=== PATIENT | female | born 1945 | race American Indian/Alaskan Native ===

== ENCOUNTER 2022-05-28 19:37 | Inpatient (IN) | payer MEDICARE ==
[2022-05-28] MEDS ORDERED: SODIUM CHLORIDE 0.9% 1000 ML 1,000 ML IV ONE ×2 (21:02→21:10)
[2022-05-28] MEDS ORDERED: INSULIN REGULAR, HUMAN 100 UNITS/1 ML IV ONE (21:08)
--- NOTE | 2022-05-28 21:15 | XRay Report ---
CHEST 1 VIEW 05/28/2022 9:00 PM INDICATION / CLINICAL INFORMATION: altered mental status. COMPARISON: 07/16/2010 FINDINGS: SUPPORT DEVICES: None. HEART / MEDIASTINUM: No significant abnormality. LUNGS / PLEURA: There is elevation of the right hemidiaphragm which is occurred since 2009. No pneumo thorax. No focal infiltrate is seen. ADDITIONAL FINDINGS: No significant additional findings. IMPRESSION: 1. There is elevation of the right hemidiaphragm which is a new finding since 2009. No focal infiltra te is seen. No pneumothorax is seen. Signer Name: Michael Carney MD Signed: 05/28/2022 9:11 PM Workstation Name: [id number]
--- NOTE | 2022-05-28 21:18 | Emergency Department Report ---
HPI - General Chief Complaint: Altered Mental Status PUI?: No Time Seen by Provider: 05/28/22 20:46 - HPI HPI: 76-year-old morbidly obese female with diabetes, unknown remainder past medical history, brought in by EMS for hypoglycemia. EMS not readily available to present HPI to this patient. Per charge nurse Francheska, EMS states that the patient's brother telephoned EMS because the patient had been weak, and not taking her insulin for the past 2 days. Patient was found to be incontinent of urine and covered in multiple urine soaked towels upon their arrival. Patient states "I just do not feel well." She denies any chest pain shortness of breath difficulty breathing or palpitations. No abdominal pain. No headache or head injury or loss of consciousness. Pain 0 out of 10. ED Past Medical Hx - Past Medical History Previous Medical History?: Yes Hx Hypertension: Yes Hx Diabetes: Yes Additional medical history: Obesity - Surgical History Past Surgical History?: No - Family History Family history: no significant - Social History Smoking Status: Never Smoker Substance Use Type: None ED Review of Systems ROS: Stated complaint: ELEVATED BLOOD GLUCOSE Other details as noted in HPI Comment: All other systems reviewed and negative Constitutional: malaise, weakness Eyes: denies: eye pain, eye discharge, vision change ENT: denies: ear pain, throat pain, dental pain, hearing loss, epistaxis Respiratory: no symptoms reported. denies: cough Physical Exam - Physical Exam Vital Signs: Vital Signs 05/28/22 19:38 Temperature 98.8 F Pulse Rate 96 H Respiratory 18 Rate Blood Pressure 157/81 O2 Sat by Pulse 97 Oximetry General: Gen: Morbidly obese female, ill-appearing, disheveled, strong odor of foul- smelling urine covering the patient and emanating from her examination room, no drooling no stridor no respiratory distress HEENT: Normocephalic atraumatic pupils equally round and reactive to light extraocular muscles intact sclera anicteric, patient's oropharynx is dry, Neck: Full range of motion, no midline spinal tenderness palpation, no JVD, no carotid bruits, no nuchal rigidity CVS: S1-S2 regular rate and rhythm with no gallops rubs or murmurs, chest wall nontender Pulmonary: Clear to auscultation bilaterally, no wheezes rales or rhonchi Abdomen: Soft nondistended nontender no guarding or rebound tenderness, no palpable deformities or step-offs, normal active bowel sounds, no hepatosplenomegaly, no pulsatile masses : Patient has stage I sacral decubitus with diffuse and macerated skin covering her buttocks, no visible erythema or open wounds to her vulva or perineum Extremities: No cyanosis no clubbing no edema, intact distal peripheral pulses, Integumentary: Skin dry no petechia no purpura no abscess no lacerations no evidence of trauma no evidence of infection Neuro: Patient is awake alert and oriented to person place time situation, mentating well,, weak, spontaneously moving arms and legs, Psych: Calm cooperative, mood affect normal ED Course Vital Signs 05/28/22 19:38 Temperature 98.8 F Pulse Rate 96 H Respiratory 18 Rate Blood Pressure 157/81 O2 Sat by Pulse 97 Oximetry - Reevaluation(s) Reevaluation #1: 05/28/22 23:23 pt is comfortable and well appearing Multiple calls made by this provider, from 10:13pm-11:23pm, to the pt's residential facility, [facility]. No one answered and despite pressing multiple buttons given options via the voice answering service, no one answered the phone at any of the individual extensions. ED Medical Decision Making - Lab Data Result diagrams: 05/28/22 21:51 05/28/22 21:51 - EKG Data EKG shows normal: sinus rhythm Rate: normal - EKG Data When compared to previous EKG there are: no significant change, previous EKG unavailable Interpretation: no acute changes - Radiology Data Radiology results: report reviewed - Medical Decision Making 76-year-old morbidly obese female with multiple medical comorbidities brought in by EMS for urinary incontinence and weakness. Vital signs stable. Patient is ill-appearing and dehydrated on physical examination. See electronic health record for documented findings. Serum labs reviewed. Patient has evidence of elevated anion gap metabolic acidosis with an anion gap of 19. This is likely due to diabetic ketoacidosis. She was given insulin and normal saline. Urinalysis positive for UTI. Patient ordered for Rocephin for broad-spectrum antibiotics and treatment of her urinary tract infection.. During her emergency because department course the patient was noted by staff members to have active live bedbugs. Decontamination to be performed by her emergency department nurse. Case reviewed with admitting hospitalist, Dr. Connor. Patient's care has been transferred to him for further management via the hospitalist service. Critical Care Time: No Critical care attestation.: If time is entered above; I have spent that time in minutes in the direct care of this critically ill patient, excluding procedure time. ED Disposition Clinical Impression: UTI (urinary tract infection), Altered mental status, DKA (diabetic ketoacidosis) Disposition: 09 ADMITTED INPATIENT Is pt being admited?: Yes Does the pt Need Aspirin: No Condition: Stable Instructions: Diabetic Ketoacidosis (ED)
[2022-05-28 21:42] LABS: Bilirubin,Urine NEG (Negative); Blood,Urine NEG (Negative); Color,Urine Yellow (Yellow); Protein,Urine <15 mg/dL mg/dL (Negative); Urobilinogen,Urine < 2.0 mg/dL (<2.0)
[2022-05-28 21:53] LABS: Mucus,Urine FEW /HPF
[2022-05-28 22:04] LABS: Basophils % (Auto) 0.2 % (0.0-1.8); Eosinophils % (Auto) 0.5 % (0.0-4.3); Hematocrit 46.2 % (30.3-42.9); Lymphocytes # (Auto) 1.4 K/mm3 (1.2-5.4); Lymphocytes % (Auto) 16.7 % (13.4-35.0); Mean Corpuscular HGB Conc 32 % (30-34); Mean Corpuscular Volume 100 fl (79-97); Monocytes # (Auto) 0.7 K/mm3 (0.0-0.8); Monocytes % (Auto) 7.7 % (0.0-7.3); Platelet Count 316 K/mm3 (140-440); Red Blood Count 4.61 M/mm3 (3.65-5.03); Red Cell Distribution Width 14.1 % (13.2-15.2)
[2022-05-28] MEDS ORDERED: cefTRIAXone/NS 1 GM/50 ML 1 GM/50 ML BAG IV ONE (22:10)
[2022-05-28 22:19] LABS: Albumin 3.7 g/dL (3.9-5); Calcium 10.4 mg/dL (8.4-10.2)
[2022-05-28] MEDS ORDERED: CEFEPIME/NS 1 GM/100 ML 1 GM/100 ML BAG IV ONE (23:24)
--- NOTE | 2022-05-28 23:53 | Cat Scan Report ---
CT HEAD WITHOUT CONTRAST INDICATION / CLINICAL INFORMATION: altered mental status. TECHNIQUE: CT head was performed without administration of intravenous contrast. All CT scans at this location are performed using CT dose reduction for ALARA by means of automated exposure control. COMPARISON: None available. FINDINGS: CEREBRAL HEMISPHERES: Generalized atrophy and bilateral regions of periventricular white matter hypoa ttenuation compatible with microvascular ischemia are demonstrated. No midline shift. Basal cisterns patent. Bilateral basal ganglia calcification. HEMORRHAGE: None. CEREBELLUM / BRAINSTEM: No significant abnormality. ORBITS: No significant abnormality. SOFT TISSUES: No significant abnormality. SKULL: No significant abnormality. PARANASAL SINUSES / MASTOID AIR CELLS: Normal as visualized. ADDITIONAL FINDINGS: None. IMPRESSION: 1. No acute intracranial abnormality. Signer Name: Eze Muñoz II, MD Signed: 05/28/2022 11:48 PM Workstation Name: [id number]
[2022-05-29] MEDS ORDERED: ALBUTEROL 2.5 MG/3 ML NEBU IH PRN (00:34)
[2022-05-29] MEDS ORDERED: ONDANSETRON 4 MG/2 ML INJ IV PRN (00:34)
[2022-05-29] MEDS ORDERED: ACETAMINOPHEN 325 MG TAB PO PRN (00:34)
[2022-05-29] MEDS ORDERED: DEXTROSE 50% IN WATER (25GM) 50 ML SYRINGE IV PRN (00:34)
--- NOTE | 2022-05-29 00:44 | History and Physical Report ---
History of Present Illness Date of examination: 05/29/22 Date of admission: 05/29/22 Chief complaint: Altered mental status Hyperglycemia History of present illness: 76-year-old morbidly obese female with diabetes and hypertension was brought to the emergency room because of hyperglycemia and altered mental status. Per charge nurse Francheska, EMS states that the patient's brother telephoned EMS because the patient had been weak, and not taking her insulin for the past 2 days. Patient was found to be incontinent of urine and covered in multiple urine soaked towels upon their arrival. Patient states "I just do not feel well." She denies any chest pain shortness of breath difficulty breathing or palpitations. No abdominal pain. No headache or head injury or loss of consciousness. Pain 0 out of 10. In the emergency room patient is found to have blood glucose of 425, bicarb of 26 and anion gap 19 subsequent blood glucose after 6 units of insulin is 279. Initial CT scan of the head shows no acute intracranial abnormality. Chest x- ray shows no focal infiltrate is seen. Patient also found to have a UTI . During her emergency because department course the patient was noted by staff members to have active live bedbugs. Decontamination to be performed by her emergency department nurse. Past History Past Medical History: diabetes, hypertension, other (Obesity) Past Surgical History: No surgical history Social history: no significant social history Family history: diabetes Medications and Allergies Allergies Allergy/AdvReac Type Severity Reaction Status Date / Time Unable to Assess Allergy Unverified 05/28/22 20:42 Active Meds: Active Medications Acetaminophen (Acetaminophen 325 Mg Tab) 650 mg PO Q4H PRN PRN Reason: Pain MILD(1-3)/Fever >100.5/DUARTE Albuterol (Albuterol 2.5 Mg/3 Ml Nebu) 2.5 mg IH Q3HRT PRN PRN Reason: Shortness Of Breath Albuterol/Ipratropium (Ipratropium/Albuterol Sulfate 3 Ml Ampul.Neb) 1 ampul IH Q6HRT MEHUL Dextrose (Dextrose 50% In Water (25gm) 50 Ml Syringe) 50 ml IV Q30MIN PRN; Protocol PRN Reason: Hypoglycemia Famotidine (Famotidine 20 Mg/2 Ml Inj) 20 mg IV BID MEHUL Heparin Sodium (Porcine) (Heparin 5,000 Unit/1 Ml Vial) 5,000 unit SUB-Q Q12HR MEHUL Sodium Chloride (Nacl 0.45% 1000 Ml) 1,000 mls @ 125 mls/hr IV DIRECT MEHUL Ceftriaxone Sodium (Rocephin/Ns 2 Gm/100 Ml) 2 gm in 100 mls @ 200 mls/hr IV Q24H MEHUL; Protocol Insulin Glargine (Insulin Glargine 100 Units/Ml) 10 units SUB-Q BID MEHUL Insulin Human Lispro (Insulin Lispro 100 Unit/Ml) 0 unit SUB-Q Q4H MEHUL; Protocol Morphine Sulfate (Morphine 2 Mg/1 Ml Inj) 2 mg IV Q4H PRN PRN Reason: Pain, Moderate (4-6) Morphine Sulfate (Morphine 4 Mg/1 Ml Inj) 4 mg IV Q4H PRN PRN Reason: Pain , Severe (7-10) Ondansetron HCl (Ondansetron 4 Mg/2 Ml Inj) 4 mg IV Q8H PRN PRN Reason: Nausea And Vomiting Sodium Chloride (Sodium Chloride 0.9% 10 Ml Flush Syringe) 10 ml IV BID [facility] Sodium Chloride (Sodium Chloride 0.9% 10 Ml Flush Syringe) 10 ml IV PRN PRN PRN Reason: LINE FLUSH Review of Systems All systems: negative Constitutional: fatigue, malaise, lethargy, other (Altered mental status, incontinent of urine) Exam - Constitutional Vitals: Temp Pulse Resp BP Pulse Ox 98.8 F 89 13 169/78 96 05/28/22 19:38 05/29/22 00:31 05/29/22 00:31 05/29/22 00:31 05/28/22 21:09 General appearance: Present: no acute distress, well-nourished - EENT Eyes: Present: PERRL ENT: hearing intact, clear oral mucosa - Neck Neck: Present: supple, normal ROM - Respiratory Respiratory effort: normal Respiratory: bilateral: CTA - Cardiovascular Heart Sounds: Present: S1 & S2. Absent: rub, click - Extremities Extremities: pulses symmetrical, No edema Peripheral Pulses: within normal limits - Abdominal General gastrointestinal: Present: soft, non-tender, non-distended, normal bowel sounds Female genitourinary: Present: normal - Integumentary Integumentary: Present: clear, warm, dry - Musculoskeletal Musculoskeletal: gait normal, strength equal bilaterally - Neurologic Neurologic: CNII-XII intact, moves all extremities Results - Labs CBC & Chem 7: 05/28/22 21:51 05/28/22 21:51 Labs: Laboratory Last Values WBC 8.6 K/mm3 (4.5-11.0) 05/28/22 21:51 RBC 4.61 M/mm3 (3.65-5.03) 05/28/22 21:51 Hgb 15.0 gm/dl (10.1-14.3) H 05/28/22 21:51 Hct 46.2 % (30.3-42.9) H 05/28/22 21:51 MCV 100 fl (79-97) H 05/28/22 21:51 MCH 33 pg (28-32) H 05/28/22 21:51 MCHC 32 % (30-34) 05/28/22 21:51 RDW 14.1 % (13.2-15.2) 05/28/22 21:51 Plt Count 316 K/mm3 (140-440) 05/28/22 21:51 Lymph % (Auto) 16.7 % (13.4-35.0) 05/28/22 21:51 [place] % (Auto) 7.7 % (0.0-7.3) H 05/28/22 21:51 Eos % (Auto) 0.5 % (0.0-4.3) 05/28/22 21:51 Baso % (Auto) 0.2 % (0.0-1.8) 05/28/22 21:51 Lymph # (Auto) 1.4 K/mm3 (1.2-5.4) 05/28/22 21:51 [place] # (Auto) 0.7 K/mm3 (0.0-0.8) 05/28/22 21:51 Eos # (Auto) 0.0 K/mm3 (0.0-0.4) 05/28/22 21:51 Baso # (Auto) 0.0 K/mm3 (0.0-0.1) 05/28/22 21:51 Seg Neutrophils % 74.9 % (40.0-70.0) H 05/28/22 21:51 Seg Neutrophils # 6.4 K/mm3 (1.8-7.7) 05/28/22 21:51 Sodium 136 mmol/L (137-145) L 05/28/22 21:51 Potassium 4.5 mmol/L (3.6-5.0) 05/28/22 21:51 Chloride 95.3 mmol/L (98-107) L 05/28/22 21:51 Carbon Dioxide 26 mmol/L (22-30) 05/28/22 21:51 Anion Gap 19 mmol/L 05/28/22 21:51 BUN 29 mg/dL (7-17) H 05/28/22 21:51 Creatinine 1.2 mg/dL (0.6-1.2) 05/28/22 21:51 Estimated GFR 53 ml/min 05/28/22 21:51 BUN/Creatinine Ratio 24 % 05/28/22 21:51 Glucose 425 mg/dL (65-100) H 05/28/22 21:51 POC Glucose 279 mg/dL (70-105) H 05/28/22 23:56 Lactic Acid 2.00 mmol/L (0.7-2.0) 05/28/22 21:51 Calcium 10.4 mg/dL (8.4-10.2) H 05/28/22 21:51 Total Bilirubin 0.50 mg/dL (0.1-1.2) 05/28/22 21:51 AST 25 units/L (5-40) 05/28/22 21:51 ALT 16 units/L (7-56) 05/28/22 21:51 Alkaline Phosphatase 259 units/L (35-129) H 05/28/22 21:51 Total Protein 8.2 g/dL (6.3-8.2) 05/28/22 21:51 Albumin 3.7 g/dL (3.9-5) L 05/28/22 21:51 Albumin/Globulin Ratio 0.8 % 05/28/22 21:51 Urine Color Yellow (Yellow) 05/28/22 21:09 Urine Turbidity Slightly-cloudy (Clear) 05/28/22 21:09 Urine pH 5.0 (5.0-7.0) 05/28/22 21:09 Ur Specific [place] 1.018 (1.003-1.030) 05/28/22 21:09 Urine Protein <15 mg/dl mg/dL (Negative) 05/28/22 21:09 Urine Glucose (UA) >=500 mg/dL (Negative) 05/28/22 21:09 Urine Ketones 20 mg/dL (Negative) 05/28/22 21:09 Urine Blood Neg (Negative) 05/28/22 21:09 Urine Nitrite Pos (Negative) 05/28/22 21:09 Urine Bilirubin Neg (Negative) 05/28/22 21:09 Urine Urobilinogen < 2.0 mg/dL (<2.0) 05/28/22 21:09 Ur Leukocyte Esterase Lg (Negative) 05/28/22 21:09 Urine WBC (Auto) 143.0 /HPF (0.0-6.0) H 05/28/22 21:09 Urine RBC (Auto) 1.0 /HPF (0.0-6.0) 05/28/22 21:09 U Epithel Cells (Auto) < 1.0 /HPF (0-13.0) 05/28/22 21:09 Urine WBC Clumps 2+ /HPF 05/28/22 21:09 Urine Mucus Few /HPF 05/28/22 21:09 - Imaging and Cardiology Chest x-ray: report reviewed CT Scan - head: report reviewed Assessment and Plan VTE prophylaxis?: Chemical Plan of care discussed with patient/family: Yes - Patient Problems (1) Acute metabolic encephalopathy Status: Acute Plan to address problem: Admit to the IMCU. Acute metabolic encephalopathy secondary to hyperglycemia and UTI. NPO. IV fluid half-normal saline at the rate of 125 cc/h. Humalog sliding scale every 6 hours fluid high-dose coverage. Lantus 10 units subcu every 12 hours. Diabetic education. Recheck BMP in the morning, 3 Rocephin 2 g IV daily (2) Hyperglycemic coma due to secondary diabetes Status: Acute Plan to address problem: NPO. IV fluid half-normal saline at the rate of 125 cc/h. Humalog sliding scale every 6 hours fluid high-dose coverage. Lantus 10 units subcu every 12 hours. Diabetic education. Recheck BMP in the morning (3) UTI (urinary tract infection) Status: Acute Plan to address problem: Rocephin 2 g IV daily. We will do the blood culture and urine culture (4) Hypertension Status: Acute Plan to address problem: Hydralazine 10 mg IV every 6 hours as needed. We continue the home medication (5) Obesity Status: Acute Plan to address problem: We counseled the patient regarding weight reduction. Outpatient follow-up with bariatric surgery (6) DVT prophylaxis Status: Acute Plan to address problem: Heparin 5000 units subcu every 12 hours for DVT prophylaxis. Pepcid 20 mg IV every 12 hours for GI prophylaxis. Patient is a full code
[2022-05-29] MEDS ORDERED: INSULIN LISPRO 100 UNIT/ML SUB-Q SCH (01:00)
[2022-05-29] MEDS: INSULIN LISPRO 100 UNIT/ML SUB-Q SCH ×4 (02:05→17:19)
[2022-05-29] MEDS ORDERED: PERMETHRIN 5% CREAM 60 GM TP ONE (05:56)
--- NOTE | 2022-05-29 09:05 | Progress Note ---
Assessment and Plan Assessment and plan: History of present illness: 76-year-old morbidly obese female with diabetes and hypertension was brought to the emergency room because of hyperglycemia and altered mental status. Per charge nurse Francheska, EMS states that the patient's brother telephoned EMS because the patient had been weak, and not taking her insulin for the past 2 days. Patient was found to be incontinent of urine and covered in multiple urine soaked towels upon their arrival. Patient states "I just do not feel well." She denies any chest pain shortness of breath difficulty breathing or palpitations. No abdominal pain. No headache or head injury or loss of consciousness. Pain 0 out of 10. In the emergency room patient is found to have blood glucose of 425, bicarb of 26 and anion gap 19 subsequent blood glucose after 6 units of insulin is 279. Initial CT scan of the head shows no acute intracranial abnormality. Chest x- ray shows no focal infiltrate is seen. Patient also found to have a UTI . During her emergency because department course the patient was noted by staff members to have active live bedbugs. Decontamination to be performed by her emergency department nurse. Assessment and Plan: (1) Acute metabolic encephalopathy Status: Acute Plan to address problem: Admit to the IMCU. Acute metabolic encephalopathy secondary to hyperglycemia and UTI. NPO. IV fluid half-normal saline at the rate of 125 cc/h. Humalog sliding scale every 6 hours fluid high-dose coverage. Lantus 10 units subcu every 12 hours. Diabetic education. Recheck BMP in the morning, 3 Rocephin 2 g IV daily (2) Hyperglycemic coma due to secondary diabetes Status: Acute Plan to address problem: NPO. IV fluid half-normal saline at the rate of 125 cc/h. Humalog sliding scale every 6 hours fluid high-dose coverage. Lantus 10 units subcu every 12 hours. Diabetic education. Recheck BMP in the morning (3) UTI (urinary tract infection) Status: Acute Plan to address problem: Rocephin 2 g IV daily. We will do the blood culture and urine culture (4) Hypertension Status: Acute Plan to address problem: Hydralazine 10 mg IV every 6 hours as needed. We continue the home medication #Morbid Obesity - BMI 44.3 - Counseled patient on the importance of weight loss, incorporating exercise, and dietary changes (lean meats, fresh fruits and vegetables, and water intake). Patient expresses understanding. - Time: +15 min The high probability of a clinically significant, sudden or life threatening deterioration of the [multi] system(s) required my full and direct attention, intervention and personal management. The aggregate critical care time was [60] minutes. This time is in addition to time spent performing reported procedures but includes the following: [x] Data Review and interpretation [x] Patient assessment and monitoring of vital signs [x] Documentation [x] Medication orders and management History Interval history: Patient seen and examined on bedside encounter. No overnight events. No acute complaints. Hospitalist Physical - Physical exam Narrative exam: General appearance: Present: no acute distress, well-nourished - EENT Eyes: Present: PERRL ENT: hearing intact, clear oral mucosa - Neck Neck: Present: supple, normal ROM - Respiratory Respiratory effort: normal Respiratory: bilateral: CTA - Cardiovascular Heart Sounds: Present: S1 & S2. Absent: rub, click - Extremities Extremities: pulses symmetrical, No edema Peripheral Pulses: within normal limits - Abdominal General gastrointestinal: Present: soft, non-tender, non-distended, normal bowel sounds Female genitourinary: Present: normal - Integumentary Integumentary: Present: clear, warm, dry - Musculoskeletal Musculoskeletal: gait normal, strength equal bilaterally - Neurologic Neurologic: CNII-XII intact, moves all extremities - Constitutional Vitals: Temp Pulse Resp BP Pulse Ox 98.8 F 75 17 146/77 96 05/28/22 19:38 05/29/22 06:10 05/29/22 05:45 05/29/22 05:45 05/28/22 21:09 General appearance: Present: no acute distress, well-nourished Results - Labs CBC & Chem 7: 05/28/22 21:51 05/28/22 21:51 Labs: Laboratory Last Values WBC 8.6 K/mm3 (4.5-11.0) 05/28/22 21:51 RBC 4.61 M/mm3 (3.65-5.03) 05/28/22 21:51 Hgb 15.0 gm/dl (10.1-14.3) H 05/28/22 21:51 Hct 46.2 % (30.3-42.9) H 05/28/22 21:51 MCV 100 fl (79-97) H 05/28/22 21:51 MCH 33 pg (28-32) H 05/28/22 21:51 MCHC 32 % (30-34) 05/28/22 21:51 RDW 14.1 % (13.2-15.2) 05/28/22 21:51 Plt Count 316 K/mm3 (140-440) 05/28/22 21:51 Lymph % (Auto) 16.7 % (13.4-35.0) 05/28/22 21:51 [place] % (Auto) 7.7 % (0.0-7.3) H 05/28/22 21:51 Eos % (Auto) 0.5 % (0.0-4.3) 05/28/22 21:51 Baso % (Auto) 0.2 % (0.0-1.8) 05/28/22 21:51 Lymph # (Auto) 1.4 K/mm3 (1.2-5.4) 05/28/22 21:51 [place] # (Auto) 0.7 K/mm3 (0.0-0.8) 05/28/22 21:51 Eos # (Auto) 0.0 K/mm3 (0.0-0.4) 05/28/22 21:51 Baso # (Auto) 0.0 K/mm3 (0.0-0.1) 05/28/22 21:51 Seg Neutrophils % 74.9 % (40.0-70.0) H 05/28/22 21:51 Seg Neutrophils # 6.4 K/mm3 (1.8-7.7) 05/28/22 21:51 Sodium 136 mmol/L (137-145) L 05/28/22 21:51 Potassium 4.5 mmol/L (3.6-5.0) 05/28/22 21:51 Chloride 95.3 mmol/L (98-107) L 05/28/22 21:51 Carbon Dioxide 26 mmol/L (22-30) 05/28/22 21:51 Anion Gap 19 mmol/L 05/28/22 21:51 BUN 29 mg/dL (7-17) H 05/28/22 21:51 Creatinine 1.2 mg/dL (0.6-1.2) 05/28/22 21:51 Estimated GFR 53 ml/min 05/28/22 21:51 BUN/Creatinine Ratio 24 % 05/28/22 21:51 Glucose 425 mg/dL (65-100) H 05/28/22 21:51 POC Glucose 279 mg/dL (70-105) H 05/28/22 23:56 Lactic Acid 1.60 mmol/L (0.7-2.0) 05/29/22 00:24 Calcium 10.4 mg/dL (8.4-10.2) H 05/28/22 21:51 Total Bilirubin 0.50 mg/dL (0.1-1.2) 05/28/22 21:51 AST 25 units/L (5-40) 05/28/22 21:51 ALT 16 units/L (7-56) 05/28/22 21:51 Alkaline Phosphatase 259 units/L (35-129) H 05/28/22 21:51 Total Protein 8.2 g/dL (6.3-8.2) 05/28/22 21:51 Albumin 3.7 g/dL (3.9-5) L 05/28/22 21:51 Albumin/Globulin Ratio 0.8 % 05/28/22 21:51 Urine Color Yellow (Yellow) 05/28/22 21:09 Urine Turbidity Slightly-cloudy (Clear) 05/28/22 21:09 Urine pH 5.0 (5.0-7.0) 05/28/22 21:09 Ur Specific [place] 1.018 (1.003-1.030) 05/28/22 21:09 Urine Protein <15 mg/dl mg/dL (Negative) 05/28/22 21:09 Urine Glucose (UA) >=500 mg/dL (Negative) 05/28/22 21:09 Urine Ketones 20 mg/dL (Negative) 05/28/22 21:09 Urine Blood Neg (Negative) 05/28/22 21:09 Urine Nitrite Pos (Negative) 05/28/22 21:09 Urine Bilirubin Neg (Negative) 05/28/22 21:09 Urine Urobilinogen < 2.0 mg/dL (<2.0) 05/28/22 21:09 Ur Leukocyte Esterase Lg (Negative) 05/28/22 21:09 Urine WBC (Auto) 143.0 /HPF (0.0-6.0) H 05/28/22 21:09 Urine RBC (Auto) 1.0 /HPF (0.0-6.0) 05/28/22 21:09 U Epithel Cells (Auto) < 1.0 /HPF (0-13.0) 05/28/22 21:09 Urine WBC Clumps 2+ /HPF 05/28/22 21:09 Urine Mucus Few /HPF 05/28/22 21:09 Active Medications - Current Medications Current Medications: Generic Name Dose Route Start Last Admin Trade Name Freq PRN Reason Stop Dose Admin Acetaminophen 650 mg 05/29/22 00:34 Acetaminophen 325 Mg Tab PO Q4H PRN Pain MILD(1-3)/Fever >100.5/DUARTE Albuterol 2.5 mg 05/29/22 00:34 Albuterol 2.5 Mg/3 Ml Nebu IH Q3HRT PRN Shortness Of Breath Albuterol/Ipratropium 1 ampul 05/29/22 02:00 Ipratropium/Albuterol Sulfate 3 Ml Ampul.Neb IH Q6HRT MEHUL Dextrose 50 ml 05/29/22 00:34 Dextrose 50% In Water (25gm) 50 Ml Syringe IV Q30MIN PRN Hypoglycemia Protocol Famotidine 20 mg 05/29/22 10:00 Famotidine 20 Mg/2 Ml Inj IV BID [facility] Heparin Sodium (Porcine) 5,000 unit 05/29/22 10:00 Heparin 5,000 Unit/1 Ml Vial SUB-Q Q12HR [facility] Sodium Chloride 1,000 mls @ 125 mls/hr 05/29/22 01:00 Nacl 0.45% 1000 Ml IV DIRECT [facility] Ceftriaxone Sodium 2 gm in 100 mls @ 200 mls/hr 05/29/22 10:00 Rocephin/Ns 2 Gm/100 Ml IV Q24H [facility] Protocol Insulin Glargine 10 units 05/29/22 10:00 Insulin Glargine 100 Units/Ml SUB-Q BID [facility] Insulin Human Lispro 0 unit 05/29/22 01:01 05/29/22 02:05 Insulin Lispro 100 Unit/Ml SUB-Q 6 unit Q6HR [facility] Administration Protocol Morphine Sulfate 2 mg 05/29/22 00:34 Morphine 2 Mg/1 Ml Inj IV Q4H PRN Pain, Moderate (4-6) Morphine Sulfate 4 mg 05/29/22 00:34 Morphine 4 Mg/1 Ml Inj IV Q4H PRN Pain , Severe (7-10) Ondansetron HCl 4 mg 05/29/22 00:34 Ondansetron 4 Mg/2 Ml Inj IV Q8H PRN Nausea And Vomiting Sodium Chloride 10 ml 05/29/22 10:00 Sodium Chloride 0.9% 10 Ml Flush Syringe IV BID MEHUL Sodium Chloride 10 ml 05/29/22 00:34 Sodium Chloride 0.9% 10 Ml Flush Syringe IV PRN PRN LINE FLUSH
[2022-05-29] MEDS: IPRATROPIUM/ALBUTEROL SULFATE 3 ML AMPUL.NEB IH SCH ×4 (10:17→23:15)
[2022-05-29] MEDS: cefTRIAXone/NS 2 GM/100 ML 2 GM/100 ML BAG IV SCH (12:07)
[2022-05-29] MEDS: HEPARIN 5,000 UNIT/1 ML VIAL SUB-Q SCH ×2 (12:07→22:36)
[2022-05-29] MEDS: SODIUM CHLORIDE 0.45% 1000 ML 1,000 ML IV SCH ×2 (12:07→22:35)
[2022-05-29] MEDS: FAMOTIDINE 20 MG/2 ML INJ IV SCH ×2 (12:08→22:36)
[2022-05-29] MEDS: INSULIN GLARGINE 100 UNITS/ML SUB-Q SCH ×2 (12:13→22:42)
[2022-05-29] MEDS: LISINOPRIL 20 MG TAB PO SCH (13:22)
[2022-05-29] MEDS ORDERED: hydrALAZINE 20 MG/1 ML INJ IV ONE (16:00)
[2022-05-29 16:19] LABS: Hematocrit 47.1 % (30.3-42.9); Hemoglobin 15.3 gm/dl (10.1-14.3); Mean Corpuscular HGB Conc 33 % (30-34); Mean Corpuscular Volume 98 fl (79-97); Platelet Count 302 K/mm3 (140-440); Red Blood Count 4.78 M/mm3 (3.65-5.03); Red Cell Distribution Width 14.1 % (13.2-15.2)
[2022-05-29 16:43] LABS: BUN/Creatinine Ratio 24; Blood Urea Nitrogen 19 mg/dL (7-17); Hemolysis Index 51
[2022-05-29] MEDS: cloNIDine 0.2 MG TAB PO SCH (16:57)
[2022-05-29] MEDS: MORPHINE 4 MG/1 ML INJ IV PRN ×2 (16:58→22:36)
[2022-05-30] MEDS: INSULIN LISPRO 100 UNIT/ML SUB-Q SCH ×5 (00:17→23:04)
[2022-05-30] MEDS: cloNIDine 0.2 MG TAB PO SCH ×2 (00:38→08:28)
[2022-05-30] MEDS: IPRATROPIUM/ALBUTEROL SULFATE 3 ML AMPUL.NEB IH SCH (03:41)
[2022-05-30 06:06] LABS: Basophils % (Auto) 0.6 % (0.0-1.8); Eosinophils # (Auto) 0.2 K/mm3 (0.0-0.4); Eosinophils % (Auto) 2.3 % (0.0-4.3); Hematocrit 38.5 % (30.3-42.9); Hemoglobin 12.4 gm/dl (10.1-14.3); Lymphocytes # (Auto) 2.3 K/mm3 (1.2-5.4); Mean Corpuscular HGB Conc 32 % (30-34); Mean Corpuscular Volume 99 fl (79-97); Monocytes # (Auto) 0.8 K/mm3 (0.0-0.8); Monocytes % (Auto) 11.3 % (0.0-7.3); Platelet Count 277 K/mm3 (140-440); Red Blood Count 3.88 M/mm3 (3.65-5.03); Red Cell Distribution Width 13.9 % (13.2-15.2)
[2022-05-30 06:24] LABS: BUN/Creatinine Ratio 21; Blood Urea Nitrogen 17 mg/dL (7-17); Calcium 8.8 mg/dL (8.4-10.2); Hemolysis Index 28
[2022-05-30] MEDS: SODIUM CHLORIDE 0.45% 1000 ML 1,000 ML IV SCH (06:36)
[2022-05-30] MEDS: FAMOTIDINE 20 MG TAB PO SCH ×2 (10:13→22:20)
[2022-05-30] MEDS: HEPARIN 5,000 UNIT/1 ML VIAL SUB-Q SCH ×2 (10:13→22:21)
[2022-05-30] MEDS: cefTRIAXone/NS 2 GM/100 ML 2 GM/100 ML BAG IV SCH (10:13)
[2022-05-30] MEDS: INSULIN GLARGINE 100 UNITS/ML SUB-Q SCH (10:13)
[2022-05-30] MEDS: FUROSEMIDE 40 MG TAB PO SCH (10:13)
[2022-05-30] MEDS: LISINOPRIL 20 MG TAB PO SCH (10:14)
[2022-05-30] MEDS: atenoloL 50 MG TAB PO SCH (10:14)
[2022-05-30] MEDS: hydrALAZINE 100 MG TAB PO SCH ×2 (10:14→22:51)
--- NOTE | 2022-05-30 12:05 | Progress Note ---
Assessment and Plan Assessment and plan: History of present illness: 76-year-old morbidly obese female with diabetes and hypertension was brought to the emergency room because of hyperglycemia and altered mental status. Per charge nurse Francheska, EMS states that the patient's brother telephoned EMS because the patient had been weak, and not taking her insulin for the past 2 days. Patient was found to be incontinent of urine and covered in multiple urine soaked towels upon their arrival. Patient states "I just do not feel well." She denies any chest pain shortness of breath difficulty breathing or palpitations. No abdominal pain. No headache or head injury or loss of consciousness. Pain 0 out of 10. In the emergency room patient is found to have blood glucose of 425, bicarb of 26 and anion gap 19 subsequent blood glucose after 6 units of insulin is 279. Initial CT scan of the head shows no acute intracranial abnormality. Chest x- ray shows no focal infiltrate is seen. Patient also found to have a UTI . During her emergency because department course the patient was noted by staff members to have active live bedbugs. Decontamination to be performed by her emergency department nurse. Hospital Course: 05/30: Mentation improved. Aox4. Patient blood pressure low. Suspect iatrogenic cause. D/c clonidine. Resumed home regimen to restart this afternoon if BP tolerates. Downgrade to med/surg bed. Anticipate d/c in 24hrs. Dispo: home with brother. Assessment and Plan: #UTI (urinary tract infection)- improving Status: Acute Plan to address problem: Treated with Rocephin 2 g IV daily. Urine Cx pending #Acute metabolic encephalopathy (resolved) Status: Acute Plan to address problem: Admit to the IMCU. Acute metabolic encephalopathy secondary to hyperglycemia and UTI. NPO. IV fluid half-normal saline at the rate of 125 cc/h. Humalog sliding scale every 6 hours fluid high-dose coverage. Lantus 10 units subcu every 12 hours. Diabetic education. Recheck BMP in the morning, 3 Rocephin 2 g IV daily # Hyperglycemic coma due to secondary diabetes Status: Acute Plan to address problem: NPO. IV fluid half-normal saline at the rate of 125 cc/h. Humalog sliding scale every 6 hours fluid high-dose coverage. Lantus 10 units subcu every 12 hours. Diabetic education. Recheck BMP in the morning # Hypertension Status: Acute Plan to address problem: Hydralazine 10 mg IV every 6 hours as needed. We continue the home medication #Morbid Obesity - BMI 44.3 - Counseled patient on the importance of weight loss, incorporating exercise, and dietary changes (lean meats, fresh fruits and vegetables, and water intake). Patient expresses understanding. - Time: +15 min The high probability of a clinically significant, sudden or life threatening deterioration of the [multi] system(s) required my full and direct attention, intervention and personal management. The aggregate critical care time was [60] minutes. This time is in addition to time spent performing reported procedures but includes the following: [x] Data Review and interpretation [x] Patient assessment and monitoring of vital signs [x] Documentation [x] Medication orders and management History Interval history: No acute complaints on AM encounter today. patient states that she lives with brother at home. Bedside monitor demonstrates low BP 90/50s. No symptoms. Hospitalist Physical - Physical exam Narrative exam: General appearance: Present: no acute distress, well-nourished - EENT Eyes: Present: PERRL ENT: hearing intact, clear oral mucosa - Neck Neck: Present: supple, normal ROM - Respiratory Respiratory effort: normal Respiratory: bilateral: CTA - Cardiovascular Heart Sounds: Present: S1 & S2. Absent: rub, click - Extremities Extremities: pulses symmetrical, No edema Peripheral Pulses: within normal limits - Abdominal General gastrointestinal: Present: soft, non-tender, non-distended, normal bowel sounds Female genitourinary: Present: normal - Integumentary Integumentary: Present: clear, warm, dry - Musculoskeletal Musculoskeletal: gait normal, strength equal bilaterally - Neurologic Neurologic: CNII-XII intact, moves all extremities - Constitutional Vitals: Temp Pulse Resp BP Pulse Ox 98.1 F 65 14 120/60 92 05/30/22 08:00 05/30/22 11:00 05/30/22 11:00 05/30/22 11:00 05/30/22 11:00 General appearance: Present: no acute distress, well-nourished Results - Labs CBC & Chem 7: 05/30/22 05:37 05/30/22 05:37 Labs: Laboratory Last Values WBC 7.3 K/mm3 (4.5-11.0) 05/30/22 05:37 RBC 3.88 M/mm3 (3.65-5.03) 05/30/22 05:37 Hgb 12.4 gm/dl (10.1-14.3) 05/30/22 05:37 Hct 38.5 % (30.3-42.9) D 05/30/22 05:37 MCV 99 fl (79-97) H 05/30/22 05:37 MCH 32 pg (28-32) 05/30/22 05:37 MCHC 32 % (30-34) 05/30/22 05:37 RDW 13.9 % (13.2-15.2) 05/30/22 05:37 Plt Count 277 K/mm3 (140-440) 05/30/22 05:37 Lymph % (Auto) 31.0 % (13.4-35.0) 05/30/22 05:37 [place] % (Auto) 11.3 % (0.0-7.3) H 05/30/22 05:37 Eos % (Auto) 2.3 % (0.0-4.3) 05/30/22 05:37 Baso % (Auto) 0.6 % (0.0-1.8) 05/30/22 05:37 Lymph # (Auto) 2.3 K/mm3 (1.2-5.4) 05/30/22 05:37 [place] # (Auto) 0.8 K/mm3 (0.0-0.8) 05/30/22 05:37 Eos # (Auto) 0.2 K/mm3 (0.0-0.4) 05/30/22 05:37 Baso # (Auto) 0.0 K/mm3 (0.0-0.1) 05/30/22 05:37 Seg Neutrophils % 54.8 % (40.0-70.0) 05/30/22 05:37 Seg Neutrophils # 4.0 K/mm3 (1.8-7.7) 05/30/22 05:37 Sodium 140 mmol/L (137-145) 05/30/22 05:37 Potassium 3.6 mmol/L (3.6-5.0) 05/30/22 05:37 Chloride 103.7 mmol/L (98-107) 05/30/22 05:37 Carbon Dioxide 28 mmol/L (22-30) D 05/30/22 05:37 Anion Gap 12 mmol/L 05/30/22 05:37 BUN 17 mg/dL (7-17) 05/30/22 05:37 Creatinine 0.8 mg/dL (0.6-1.2) 05/30/22 05:37 Estimated GFR > 60 ml/min 05/30/22 05:37 BUN/Creatinine Ratio 21 % 05/30/22 05:37 Glucose 172 mg/dL (65-100) H 05/30/22 05:37 POC Glucose 281 mg/dL (70-105) H 05/29/22 22:41 Lactic Acid 1.60 mmol/L (0.7-2.0) 05/29/22 00:24 Calcium 8.8 mg/dL (8.4-10.2) 05/30/22 05:37 Total Bilirubin 0.50 mg/dL (0.1-1.2) 05/28/22 21:51 AST 25 units/L (5-40) 05/28/22 21:51 ALT 16 units/L (7-56) 05/28/22 21:51 Alkaline Phosphatase 259 units/L (35-129) H 05/28/22 21:51 Total Protein 8.2 g/dL (6.3-8.2) 05/28/22 21:51 Albumin 3.7 g/dL (3.9-5) L 05/28/22 21:51 Albumin/Globulin Ratio 0.8 % 05/28/22 21:51 Urine Color Yellow (Yellow) 05/28/22 21:09 Urine Turbidity Slightly-cloudy (Clear) 05/28/22 21:09 Urine pH 5.0 (5.0-7.0) 05/28/22 21:09 Ur Specific [place] 1.018 (1.003-1.030) 05/28/22 21:09 Urine Protein <15 mg/dl mg/dL (Negative) 05/28/22 21:09 Urine Glucose (UA) >=500 mg/dL (Negative) 05/28/22 21:09 Urine Ketones 20 mg/dL (Negative) 05/28/22 21:09 Urine Blood Neg (Negative) 05/28/22 21:09 Urine Nitrite Pos (Negative) 05/28/22 21:09 Urine Bilirubin Neg (Negative) 05/28/22 21:09 Urine Urobilinogen < 2.0 mg/dL (<2.0) 05/28/22 21:09 Ur Leukocyte Esterase Lg (Negative) 05/28/22 21:09 Urine WBC (Auto) 143.0 /HPF (0.0-6.0) H 05/28/22 21:09 Urine RBC (Auto) 1.0 /HPF (0.0-6.0) 05/28/22 21:09 U Epithel Cells (Auto) < 1.0 /HPF (0-13.0) 05/28/22 21:09 Urine WBC Clumps 2+ /HPF 05/28/22 21:09 Urine Mucus Few /HPF 05/28/22 21:09 Moya/IV: Voiding Method Incontinent Active Medications - Current Medications Current Medications: Generic Name Dose Route Start Last Admin Trade Name Freq PRN Reason Stop Dose Admin Acetaminophen 650 mg 05/29/22 00:34 Acetaminophen 325 Mg Tab PO Q4H PRN Pain MILD(1-3)/Fever >100.5/DUARTE Albuterol 2.5 mg 05/29/22 00:34 Albuterol 2.5 Mg/3 Ml Nebu IH Q3HRT PRN Shortness Of Breath Atenolol 50 mg 05/30/22 10:00 05/30/22 10:14 Atenolol 50 Mg Tab PO Not Given QDAY MEHUL Atorvastatin Calcium 40 mg 05/30/22 22:00 Atorvastatin 40 Mg Tab PO QHS MEHUL Calcitriol 0.25 mcg 05/30/22 10:00 Calcitriol 0.25 Mcg Cap PO DAILY MEHUL Dextrose 50 ml 05/29/22 00:34 Dextrose 50% In Water (25gm) 50 Ml Syringe IV Q30MIN PRN Hypoglycemia Protocol Famotidine 20 mg 05/30/22 10:00 05/30/22 10:13 Famotidine 20 Mg Tab PO 20 mg BID MEHUL Administration Furosemide 40 mg 05/30/22 10:00 05/30/22 10:13 Furosemide 40 Mg Tab PO 40 mg DAILY MEHUL Administration Heparin Sodium (Porcine) 5,000 unit 05/29/22 10:00 05/30/22 10:13 Heparin 5,000 Unit/1 Ml Vial SUB-Q 5,000 unit Q12HR MEHUL Administration Hydralazine HCl 100 mg 05/30/22 10:00 05/30/22 10:14 Hydralazine 100 Mg Tab PO Not Given BID MEHUL Sodium Chloride 1,000 mls @ 125 mls/hr 05/29/22 01:00 05/30/22 06:36 Nacl 0.45% 1000 Ml IV 125 mls/hr DIRECT MEHUL Administration Ceftriaxone Sodium 2 gm in 100 mls @ 200 mls/hr 05/29/22 10:00 05/30/22 10:13 Rocephin/Ns 2 Gm/100 Ml IV 200 mls/hr Q24H MEHUL Administration Protocol Insulin Glargine 10 units 05/29/22 10:00 05/30/22 10:13 Insulin Glargine 100 Units/Ml SUB-Q 10 units BID MEHUL Administration Insulin Human Lispro 0 unit 05/29/22 01:01 05/30/22 06:35 Insulin Lispro 100 Unit/Ml SUB-Q 3 unit Q6HR MEHUL Administration Protocol Labetalol HCl 10 mg 05/29/22 13:03 05/29/22 13:19 Labetalol 20 Mg/4 Ml Inj IV 10 mg Q4H PRN Administration sbp> 160 Lisinopril 20 mg 05/29/22 13:00 05/30/22 10:14 Lisinopril 20 Mg Tab PO Not Given QDAY [facility] Montelukast Sodium 10 mg 05/30/22 18:00 Montelukast 10 Mg Tab PO QPM [facility] Morphine Sulfate 2 mg 05/29/22 00:34 Morphine 2 Mg/1 Ml Inj IV Q4H PRN Pain, Moderate (4-6) Morphine Sulfate 4 mg 05/29/22 00:34 05/29/22 22:36 Morphine 4 Mg/1 Ml Inj IV 4 mg Q4H PRN Administration Pain , Severe (7-10) Ondansetron HCl 4 mg 05/29/22 00:34 Ondansetron 4 Mg/2 Ml Inj IV Q8H PRN Nausea And Vomiting Sodium Chloride 10 ml 05/29/22 10:00 05/30/22 10:14 Sodium Chloride 0.9% 10 Ml Flush Syringe IV 10 ml BID MEHUL Administration Sodium Chloride 10 ml 05/29/22 00:34 Sodium Chloride 0.9% 10 Ml Flush Syringe IV PRN PRN LINE FLUSH Nutrition/Malnutrition Assess - Dietary Evaluation Nutrition/Malnutrition Findings: Nutrition Notes Start: 05/30/22 11:07 Freq: Status: Active Protocol: Document 05/30/22 11:07 YAMILAGIOVANNY (Rec: 05/30/22 11:14 TERRENCE [id number]) Nutrition Notes Need for Assessment generated from: MD Order,Education Initial or Follow up Brief Note Current Diagnosis Diabetes,Hypertension Other Pertinent Diagnosis AMS, hyperglycemia Current Diet Cardiac/Consistent CHO Labs/Tests B, 87, 172 Pertinent Medications reviewed Height 5 ft 3 in Weight 113.398 kg [place] Body Weight (kg) 52.27 BMI 44.2 Weight Status Morbidly Obese Subjective/Other Information RD consulted for diet education. Pt admitted with active bedbugs; decontamination procedure performed. Pt with skin breakdown in sacral area. Burn Absent Trauma Absent Skin Integrity/Comment Sacral skin breakdown Minimum of two criteria No Fluid Accumulation Mild (non-severe) Is patient on ventilator? No Is Patient Ambulatory and/or Out of Bed No REE-([place]-confined to bed) 1917.660 Kcal/Kg value to use for calculation 13 Approximate Energy Requirements Using 1474 kcal/Kg Calculation Used for Recommendations Kcal/kg Additional Notes Pro needs 1.25-1.5g/kg adjBW: 104-124g/day Fluid needs 1ml/kcal Nutrition Intervention Follow-Up By: 06/03/22 Additional Comments F/U: intakes, diet education needs
[2022-05-30] MEDS: CALCITRIOL 0.25 MCG CAP PO SCH (15:04)
--- NOTE | 2022-05-30 16:55 | Electrocardiograph Report ---
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
[2022-05-30] MEDS: MONTELUKAST 10 MG TAB PO SCH (22:51)
[2022-05-31] MEDS: INSULIN GLARGINE 100 UNITS/ML SUB-Q SCH ×3 (01:32→21:48)
[2022-05-31] MEDS: INSULIN LISPRO 100 UNIT/ML SUB-Q SCH ×3 (06:54→18:25)
--- NOTE | 2022-05-31 10:08 | Progress Note ---
Assessment and Plan Assessment and plan: 76-year-old morbidly obese female with diabetes and hypertension was brought to the emergency room because of hyperglycemia and altered mental status. Per charge nurse Francheska, EMS states that the patient's brother telephoned EMS because the patient had been weak, and not taking her insulin for the past 2 days. Patient was found to be incontinent of urine and covered in multiple urine soaked towels upon their arrival. Patient states "I just do not feel well." She denies any chest pain shortness of breath difficulty breathing or palpitations. No abdominal pain. No headache or head injury or loss of consciousness. Pain 0 out of 10. In the emergency room patient is found to have blood glucose of 425, bicarb of 26 and anion gap 19 subsequent blood glucose after 6 units of insulin is 279. Initial CT scan of the head shows no acute intracranial abnormality. Chest x- ray shows no focal infiltrate is seen. Patient also found to have a UTI . During her emergency because department course the patient was noted by staff members to have active live bedbugs. Decontamination to be performed by her emergency department nurse. Hospital Course: 05/30: Mentation improved. Aox4. Patient blood pressure low. Suspect iatrogenic cause. D/c clonidine. Resumed home regimen to restart this afternoon if BP tolerates. Downgrade to med/surg bed. Anticipate d/c in 24hrs. Dispo: home with brother. 05/31: Patient still with some weakness. We will check PT evaluation for disp osition Assessment and Plan: #UTI (urinary tract infection)- improving Status: Acute Plan to address problem: Treated with Rocephin 2 g IV daily. Urine Cx pending #Acute metabolic encephalopathy (resolved) Status: Acute Plan to address problem: Admit to the IMCU. Acute metabolic encephalopathy secondary to hyperglycemia and UTI. NPO. IV fluid half-normal saline at the rate of 125 cc/h. Humalog sliding scale every 6 hours fluid high-dose coverage. Lantus 10 units subcu every 12 hours. Diabetic education. Recheck BMP in the morning, 3 Rocephin 2 g IV daily # Hyperglycemic coma due to secondary diabetes Status: Acute Plan to address problem: NPO. IV fluid half-normal saline at the rate of 125 cc/h. Humalog sliding scale every 6 hours fluid high-dose coverage. Lantus 10 units subcu every 12 hours. Diabetic education. Recheck BMP in the morning # Hypertension Status: Acute Plan to address problem: Hydralazine 10 mg IV every 6 hours as needed. We continue the home medication #Morbid Obesity - BMI 44.3 - Counseled patient on the importance of weight loss, incorporating exercise, and dietary changes (lean meats, fresh fruits and vegetables, and water intake). Patient expresses understanding. History Interval history: No new issues overnight Hospitalist Physical - Constitutional Vitals: Temp Pulse Resp BP Pulse Ox 98.8 F 95 H 18 148/72 97 05/31/22 06:47 05/31/22 06:47 05/31/22 06:47 05/31/22 06:47 05/31/22 07:30 General appearance: Present: no acute distress, well-nourished - EENT Eyes: Present: PERRL, EOM intact ENT: hearing intact, clear oral mucosa, dentition normal - Neck Neck: Present: supple, normal ROM - Respiratory Respiratory effort: normal Respiratory: bilateral: CTA - Cardiovascular Rhythm: regular Heart Sounds: Present: S1 & S2. Absent: gallop, rub - Extremities Extremities: no ischemia, No edema, Full ROM - Abdominal General gastrointestinal: soft, non-tender, non-distended, normal bowel sounds - Integumentary Integumentary: Present: clear, warm, dry - Neurologic Neurologic: CNII-XII intact, moves all extremities Results - Labs CBC & Chem 7: 05/30/22 05:37 05/30/22 05:37 Labs: Laboratory Last Values WBC 7.3 K/mm3 (4.5-11.0) 05/30/22 05:37 RBC 3.88 M/mm3 (3.65-5.03) 05/30/22 05:37 Hgb 12.4 gm/dl (10.1-14.3) 05/30/22 05:37 Hct 38.5 % (30.3-42.9) D 05/30/22 05:37 MCV 99 fl (79-97) H 05/30/22 05:37 MCH 32 pg (28-32) 05/30/22 05:37 MCHC 32 % (30-34) 05/30/22 05:37 RDW 13.9 % (13.2-15.2) 05/30/22 05:37 Plt Count 277 K/mm3 (140-440) 05/30/22 05:37 Lymph % (Auto) 31.0 % (13.4-35.0) 05/30/22 05:37 [place] % (Auto) 11.3 % (0.0-7.3) H 05/30/22 05:37 Eos % (Auto) 2.3 % (0.0-4.3) 05/30/22 05:37 Baso % (Auto) 0.6 % (0.0-1.8) 05/30/22 05:37 Lymph # (Auto) 2.3 K/mm3 (1.2-5.4) 05/30/22 05:37 [place] # (Auto) 0.8 K/mm3 (0.0-0.8) 05/30/22 05:37 Eos # (Auto) 0.2 K/mm3 (0.0-0.4) 05/30/22 05:37 Baso # (Auto) 0.0 K/mm3 (0.0-0.1) 05/30/22 05:37 Seg Neutrophils % 54.8 % (40.0-70.0) 05/30/22 05:37 Seg Neutrophils # 4.0 K/mm3 (1.8-7.7) 05/30/22 05:37 Sodium 140 mmol/L (137-145) 05/30/22 05:37 Potassium 3.6 mmol/L (3.6-5.0) 05/30/22 05:37 Chloride 103.7 mmol/L (98-107) 05/30/22 05:37 Carbon Dioxide 28 mmol/L (22-30) D 05/30/22 05:37 Anion Gap 12 mmol/L 05/30/22 05:37 BUN 17 mg/dL (7-17) 05/30/22 05:37 Creatinine 0.8 mg/dL (0.6-1.2) 05/30/22 05:37 Estimated GFR > 60 ml/min 05/30/22 05:37 BUN/Creatinine Ratio 21 % 05/30/22 05:37 Glucose 172 mg/dL (65-100) H 05/30/22 05:37 POC Glucose 191 mg/dL (70-105) H 05/31/22 06:50 Lactic Acid 1.60 mmol/L (0.7-2.0) 05/29/22 00:24 Calcium 8.8 mg/dL (8.4-10.2) 05/30/22 05:37 Total Bilirubin 0.50 mg/dL (0.1-1.2) 05/28/22 21:51 AST 25 units/L (5-40) 05/28/22 21:51 ALT 16 units/L (7-56) 05/28/22 21:51 Alkaline Phosphatase 259 units/L (35-129) H 05/28/22 21:51 Total Protein 8.2 g/dL (6.3-8.2) 05/28/22 21:51 Albumin 3.7 g/dL (3.9-5) L 05/28/22 21:51 Albumin/Globulin Ratio 0.8 % 05/28/22 21:51 Urine Color Yellow (Yellow) 05/28/22 21:09 Urine Turbidity Slightly-cloudy (Clear) 05/28/22 21:09 Urine pH 5.0 (5.0-7.0) 05/28/22 21:09 Ur Specific [place] 1.018 (1.003-1.030) 05/28/22 21:09 Urine Protein <15 mg/dl mg/dL (Negative) 05/28/22 21:09 Urine Glucose (UA) >=500 mg/dL (Negative) 05/28/22 21:09 Urine Ketones 20 mg/dL (Negative) 05/28/22 21:09 Urine Blood Neg (Negative) 05/28/22 21:09 Urine Nitrite Pos (Negative) 05/28/22 21:09 Urine Bilirubin Neg (Negative) 05/28/22 21:09 Urine Urobilinogen < 2.0 mg/dL (<2.0) 05/28/22 21:09 Ur Leukocyte Esterase Lg (Negative) 05/28/22 21:09 Urine WBC (Auto) 143.0 /HPF (0.0-6.0) H 05/28/22 21:09 Urine RBC (Auto) 1.0 /HPF (0.0-6.0) 05/28/22 21:09 U Epithel Cells (Auto) < 1.0 /HPF (0-13.0) 05/28/22 21:09 Urine WBC Clumps 2+ /HPF 05/28/22 21:09 Urine Mucus Few /HPF 05/28/22 21:09 Moya/IV: Voiding Method External Female Catheter Active Medications - Current Medications Current Medications: Generic Name Dose Route Start Last Admin Trade Name Freq PRN Reason Stop Dose Admin Acetaminophen 650 mg 05/29/22 00:34 Acetaminophen 325 Mg Tab PO Q4H PRN Pain MILD(1-3)/Fever >100.5/DUARTE Albuterol 2.5 mg 05/29/22 00:34 Albuterol 2.5 Mg/3 Ml Nebu IH Q3HRT PRN Shortness Of Breath Atenolol 50 mg 05/30/22 10:00 05/30/22 10:14 Atenolol 50 Mg Tab PO Not Given QDAY MEHUL Atorvastatin Calcium 40 mg 05/30/22 22:00 05/30/22 22:20 Atorvastatin 40 Mg Tab PO 40 mg QHS MEHUL Administration Calcitriol 0.25 mcg 05/30/22 10:00 05/30/22 15:04 Calcitriol 0.25 Mcg Cap PO Not Given DAILY MEHUL Dextrose 50 ml 05/29/22 00:34 Dextrose 50% In Water (25gm) 50 Ml Syringe IV Q30MIN PRN Hypoglycemia Protocol Famotidine 20 mg 05/30/22 10:00 05/30/22 22:20 Famotidine 20 Mg Tab PO 20 mg BID MEHUL Administration Furosemide 40 mg 05/30/22 10:00 05/30/22 10:13 Furosemide 40 Mg Tab PO 40 mg DAILY MEHUL Administration Heparin Sodium (Porcine) 5,000 unit 05/29/22 10:00 05/30/22 22:21 Heparin 5,000 Unit/1 Ml Vial SUB-Q 5,000 unit Q12HR MEHUL Administration Hydralazine HCl 100 mg 05/30/22 10:00 05/30/22 22:51 Hydralazine 100 Mg Tab PO 100 mg BID MEHUL Administration Ceftriaxone Sodium 2 gm in 100 mls @ 200 mls/hr 05/29/22 10:00 05/30/22 10:13 Rocephin/Ns 2 Gm/100 Ml IV 05/31/22 10:29 200 mls/hr Q24H MEHUL Administration Protocol Insulin Glargine 10 units 05/29/22 10:00 05/31/22 01:32 Insulin Glargine 100 Units/Ml SUB-Q 10 units BID MEHUL Administration Insulin Human Lispro 0 unit 05/29/22 01:01 05/31/22 06:54 Insulin Lispro 100 Unit/Ml SUB-Q 3 unit Q6HR MEHUL Administration Protocol Labetalol HCl 10 mg 05/29/22 13:03 05/29/22 13:19 Labetalol 20 Mg/4 Ml Inj IV 10 mg Q4H PRN Administration sbp> 160 Lisinopril 20 mg 05/29/22 13:00 05/30/22 10:14 Lisinopril 20 Mg Tab PO Not Given QDAY MEHUL Montelukast Sodium 10 mg 05/30/22 18:00 05/30/22 22:51 Montelukast 10 Mg Tab PO 10 mg QPM MEHUL Administration Morphine Sulfate 2 mg 05/29/22 00:34 Morphine 2 Mg/1 Ml Inj IV Q4H PRN Pain, Moderate (4-6) Morphine Sulfate 4 mg 05/29/22 00:34 05/29/22 22:36 Morphine 4 Mg/1 Ml Inj IV 4 mg Q4H PRN Administration Pain , Severe (7-10) Ondansetron HCl 4 mg 05/29/22 00:34 Ondansetron 4 Mg/2 Ml Inj IV Q8H PRN Nausea And Vomiting Sodium Chloride 10 ml 05/29/22 10:00 05/30/22 22:21 Sodium Chloride 0.9% 10 Ml Flush Syringe IV 10 ml BID MEHUL Administration Sodium Chloride 10 ml 05/29/22 00:34 Sodium Chloride 0.9% 10 Ml Flush Syringe IV PRN PRN LINE FLUSH Nutrition/Malnutrition Assess - Dietary Evaluation Nutrition/Malnutrition Findings: Nutrition Notes Start: 05/30/22 11:07 Freq: Status: Active Protocol: Document 05/30/22 11:07 [facility] (Rec: 05/30/22 11:14 [facility] [id number]) Nutrition Notes Need for Assessment generated from: MD Order,Education Initial or Follow up Brief Note Current Diagnosis Diabetes,Hypertension Other Pertinent Diagnosis AMS, hyperglycemia Current Diet Cardiac/Consistent CHO Labs/Tests B, 87, 172 Pertinent Medications reviewed Height 5 ft 3 in Weight 113.398 kg [place] Body Weight (kg) 52.27 BMI 44.2 Weight Status Morbidly Obese Subjective/Other Information RD consulted for diet education. Pt admitted with active bedbugs; decontamination procedure performed. Pt with skin breakdown in sacral area. Burn Absent Trauma Absent Skin Integrity/Comment Sacral skin breakdown Minimum of two criteria No Fluid Accumulation Mild (non-severe) Is patient on ventilator? No Is Patient Ambulatory and/or Out of Bed No REE-([facility]conf[facility]) 191.660 Kcal/Kg value to use for calculation 13 Approximate Energy Requirements Using 1474 kcal/Kg Calculation Used for Recommendations Kcal/kg Additional Notes Pro needs 1.25-1.5g/kg adjBW: 104-124g/day Fluid needs 1ml/kcal Nutrition Intervention Follow-Up By: 06/03/22 Additional Comments F/U: intakes, diet education needs
[2022-05-31] MEDS: LISINOPRIL 20 MG TAB PO SCH (11:59)
[2022-05-31] MEDS: CALCITRIOL 0.25 MCG CAP PO SCH (11:59)
[2022-05-31] MEDS: HEPARIN 5,000 UNIT/1 ML VIAL SUB-Q SCH ×2 (11:59→21:47)
[2022-05-31] MEDS: atenoloL 50 MG TAB PO SCH (12:00)
[2022-05-31] MEDS: FUROSEMIDE 40 MG TAB PO SCH (12:02)
[2022-05-31] MEDS: cefTRIAXone/NS 2 GM/100 ML 2 GM/100 ML BAG IV SCH (12:07)
[2022-05-31] MEDS: FAMOTIDINE 20 MG TAB PO SCH ×2 (13:24→21:47)
[2022-05-31] MEDS: hydrALAZINE 100 MG TAB PO SCH ×2 (13:28→22:09)
[2022-05-31] MEDS: MONTELUKAST 10 MG TAB PO SCH (18:24)
[2022-05-31] MEDS: MORPHINE 2 MG/1 ML INJ IV PRN (18:24)
[2022-06-01] MEDS: INSULIN LISPRO 100 UNIT/ML SUB-Q SCH ×4 (00:21→17:56)
[2022-06-01] MEDS: MORPHINE 2 MG/1 ML INJ IV PRN ×3 (00:32→19:39)
[2022-06-01 05:11] LABS: Basophils # (Auto) 0.1 K/mm3 (0.0-0.1); Eosinophils # (Auto) 0.1 K/mm3 (0.0-0.4); Hematocrit 39.8 % (30.3-42.9); Hemoglobin 12.9 gm/dl (10.1-14.3); Lymphocytes # (Auto) 2.7 K/mm3 (1.2-5.4); Lymphocytes % (Auto) 39.8 % (13.4-35.0); Mean Corpuscular HGB Conc 33 % (30-34); Mean Corpuscular Volume 98 fl (79-97); Monocytes # (Auto) 0.7 K/mm3 (0.0-0.8); Platelet Count 341 K/mm3 (140-440); Red Blood Count 4.06 M/mm3 (3.65-5.03)
[2022-06-01 05:33] LABS: BUN/Creatinine Ratio 13; Blood Urea Nitrogen 13 mg/dL (7-17); Calcium 9.6 mg/dL (8.4-10.2); Hemolysis Index 2
--- NOTE | 2022-06-01 09:46 | Progress Note ---
Assessment and Plan Assessment and plan: 76-year-old morbidly obese female with diabetes and hypertension was brought to the emergency room because of hyperglycemia and altered mental status. Per charge nurse Francheska, EMS states that the patient's brother telephoned EMS because the patient had been weak, and not taking her insulin for the past 2 days. Patient was found to be incontinent of urine and covered in multiple urine soaked towels upon their arrival. Patient states "I just do not feel well." She denies any chest pain shortness of breath difficulty breathing or palpitations. No abdominal pain. No headache or head injury or loss of consciousness. Pain 0 out of 10. In the emergency room patient is found to have blood glucose of 425, bicarb of 26 and anion gap 19 subsequent blood glucose after 6 units of insulin is 279. Initial CT scan of the head shows no acute intracranial abnormality. Chest x- ray shows no focal infiltrate is seen. Patient also found to have a UTI . During her emergency because department course the patient was noted by staff members to have active live bedbugs. Decontamination to be performed by her emergency department nurse. Assessment and Plan: #UTI (urinary tract infection)- improving Treated with Rocephin 2 g IV daily. Urine Cx not completed, we will reorder #Acute metabolic encephalopathy (resolved) -secondary to hyperglycemia and UTI. NPO. IV fluid half-normal saline at the rate of 125 cc/h. Humalog sliding scale every 6 hours fluid high-dose coverage. Lantus 10 units subcu every 12 hours. Diabetic education. Recheck BMP in the morning, 3 Rocephin 2 g IV daily # Hyperglycemic coma due to secondary diabetes, resolved Humalog sliding scale every 6 hours fluid high-dose coverage. Lantus 10 units subcu every 12 hours. Diabetic education. Recheck BMP in the morning # Hypertension Hydralazine 10 mg IV every 6 hours as needed. We continue the home medication #Morbid Obesity - BMI 44.3 - Counseled patient on the importance of weight loss, incorporating exercise, and dietary changes (lean meats, fresh fruits and vegetables, and water intake). Patient expresses understanding. Hospital Course: 05/30: Mentation improved. Aox4. Patient blood pressure low. Suspect iatrogenic cause. D/c clonidine. Resumed home regimen to restart this afternoon if BP tolerates. Downgrade to med/surg bed. Anticipate d/c in 24hrs. Dispo: home with brother. 05/31: Patient still with some weakness. We will check PT evaluation for disposition 06/01: Physical therapy recommending subacute rehab. We will discuss with case management placement History Interval history: No new issues overnight Hospitalist Physical - Constitutional Vitals: Temp Pulse Resp BP Pulse Ox 97.9 F 74 16 124/61 95 06/01/22 05:40 06/01/22 05:40 06/01/22 08:25 06/01/22 05:40 06/01/22 09:05 General appearance: Present: no acute distress, well-nourished - EENT Eyes: Present: PERRL, EOM intact ENT: hearing intact, clear oral mucosa, dentition normal - Neck Neck: Present: supple, normal ROM - Respiratory Respiratory effort: normal Respiratory: bilateral: CTA - Cardiovascular Rhythm: regular Heart Sounds: Present: S1 & S2. Absent: gallop, rub - Extremities Extremities: no ischemia, No edema, Full ROM - Abdominal General gastrointestinal: soft, non-tender, non-distended, normal bowel sounds - Integumentary Integumentary: Present: clear, warm, dry - Neurologic Neurologic: CNII-XII intact, moves all extremities Results - Labs CBC & Chem 7: 06/01/22 04:44 06/01/22 04:44 Labs: Laboratory Last Values WBC 6.8 K/mm3 (4.5-11.0) 06/01/22 04:44 RBC 4.06 M/mm3 (3.65-5.03) 06/01/22 04:44 Hgb 12.9 gm/dl (10.1-14.3) 06/01/22 04:44 Hct 39.8 % (30.3-42.9) 06/01/22 04:44 MCV 98 fl (79-97) H 06/01/22 04:44 MCH 32 pg (28-32) 06/01/22 04:44 MCHC 33 % (30-34) 06/01/22 04:44 RDW 14.0 % (13.2-15.2) 06/01/22 04:44 Plt Count 341 K/mm3 (140-440) 06/01/22 04:44 Lymph % (Auto) 39.8 % (13.4-35.0) H 06/01/22 04:44 [place] % (Auto) 11.0 % (0.0-7.3) H 06/01/22 04:44 Eos % (Auto) 2.0 % (0.0-4.3) 06/01/22 04:44 Baso % (Auto) 1.0 % (0.0-1.8) 06/01/22 04:44 Lymph # (Auto) 2.7 K/mm3 (1.2-5.4) 06/01/22 04:44 [place] # (Auto) 0.7 K/mm3 (0.0-0.8) 06/01/22 04:44 Eos # (Auto) 0.1 K/mm3 (0.0-0.4) 06/01/22 04:44 Baso # (Auto) 0.1 K/mm3 (0.0-0.1) 06/01/22 04:44 Seg Neutrophils % 46.2 % (40.0-70.0) 06/01/22 04:44 Seg Neutrophils # 3.2 K/mm3 (1.8-7.7) 06/01/22 04:44 Sodium 139 mmol/L (137-145) 06/01/22 04:44 Potassium 3.4 mmol/L (3.6-5.0) L 06/01/22 04:44 Chloride 102.0 mmol/L (98-107) 06/01/22 04:44 Carbon Dioxide 26 mmol/L (22-30) 06/01/22 04:44 Anion Gap 14 mmol/L 06/01/22 04:44 BUN 13 mg/dL (7-17) 06/01/22 04:44 Creatinine 1.0 mg/dL (0.6-1.2) 06/01/22 04:44 Estimated GFR > 60 ml/min 06/01/22 04:44 BUN/Creatinine Ratio 13 % 06/01/22 04:44 Glucose 184 mg/dL (65-100) H 06/01/22 04:44 POC Glucose 174 mg/dL (70-105) H 06/01/22 05:13 Lactic Acid 1.60 mmol/L (0.7-2.0) 05/29/22 00:24 Calcium 9.6 mg/dL (8.4-10.2) 06/01/22 04:44 Total Bilirubin 0.50 mg/dL (0.1-1.2) 05/28/22 21:51 AST 25 units/L (5-40) 05/28/22 21:51 ALT 16 units/L (7-56) 05/28/22 21:51 Alkaline Phosphatase 259 units/L (35-129) H 05/28/22 21:51 Total Protein 8.2 g/dL (6.3-8.2) 05/28/22 21:51 Albumin 3.7 g/dL (3.9-5) L 05/28/22 21:51 Albumin/Globulin Ratio 0.8 % 05/28/22 21:51 Urine Color Yellow (Yellow) 05/28/22 21:09 Urine Turbidity Slightly-cloudy (Clear) 05/28/22 21:09 Urine pH 5.0 (5.0-7.0) 05/28/22 21:09 Ur Specific [place] 1.018 (1.003-1.030) 05/28/22 21:09 Urine Protein <15 mg/dl mg/dL (Negative) 05/28/22 21:09 Urine Glucose (UA) >=500 mg/dL (Negative) 05/28/22 21:09 Urine Ketones 20 mg/dL (Negative) 05/28/22 21:09 Urine Blood Neg (Negative) 05/28/22 21:09 Urine Nitrite Pos (Negative) 05/28/22 21:09 Urine Bilirubin Neg (Negative) 05/28/22 21:09 Urine Urobilinogen < 2.0 mg/dL (<2.0) 05/28/22 21:09 Ur Leukocyte Esterase Lg (Negative) 05/28/22 21:09 Urine WBC (Auto) 143.0 /HPF (0.0-6.0) H 05/28/22 21:09 Urine RBC (Auto) 1.0 /HPF (0.0-6.0) 05/28/22 21:09 U Epithel Cells (Auto) < 1.0 /HPF (0-13.0) 05/28/22 21:09 Urine WBC Clumps 2+ /HPF 05/28/22 21:09 Urine Mucus Few /HPF 05/28/22 21:09 Moya/IV: Voiding Method External Female Catheter Active Medications - Current Medications Current Medications: Generic Name Dose Route Start Last Admin Trade Name Freq PRN Reason Stop Dose Admin Acetaminophen 650 mg 05/29/22 00:34 Acetaminophen 325 Mg Tab PO Q4H PRN Pain MILD(1-3)/Fever >100.5/DUARTE Albuterol 2.5 mg 05/29/22 00:34 Albuterol 2.5 Mg/3 Ml Nebu IH Q3HRT PRN Shortness Of Breath Atenolol 50 mg 05/30/22 10:00 05/31/22 12:00 Atenolol 50 Mg Tab PO 50 mg QDAY MEHUL Administration Atorvastatin Calcium 40 mg 05/30/22 22:00 05/31/22 21:47 Atorvastatin 40 Mg Tab PO 40 mg QHS MEHUL Administration Calcitriol 0.25 mcg 05/30/22 10:00 05/31/22 11:59 Calcitriol 0.25 Mcg Cap PO 0.25 mcg DAILY MEHUL Administration Dextrose 50 ml 05/29/22 00:34 Dextrose 50% In Water (25gm) 50 Ml Syringe IV Q30MIN PRN Hypoglycemia Protocol Famotidine 20 mg 05/30/22 10:00 05/31/22 21:47 Famotidine 20 Mg Tab PO 20 mg BID MEHUL Administration Furosemide 40 mg 05/30/22 10:00 05/31/22 12:02 Furosemide 40 Mg Tab PO 40 mg DAILY MEHUL Administration Heparin Sodium (Porcine) 5,000 unit 05/29/22 10:00 05/31/22 21:47 Heparin 5,000 Unit/1 Ml Vial SUB-Q 5,000 unit Q12HR MEHUL Administration Hydralazine HCl 100 mg 05/30/22 10:00 05/31/22 22:09 Hydralazine 100 Mg Tab PO 100 mg BID MEHUL Administration Insulin Glargine 10 units 05/29/22 10:00 05/31/22 21:48 Insulin Glargine 100 Units/Ml SUB-Q 10 units BID MEHUL Administration Insulin Human Lispro 0 unit 05/29/22 01:01 06/01/22 05:20 Insulin Lispro 100 Unit/Ml SUB-Q 3 unit Q6HR MEHUL Administration Protocol Labetalol HCl 10 mg 05/29/22 13:03 05/29/22 13:19 Labetalol 20 Mg/4 Ml Inj IV 10 mg Q4H PRN Administration sbp> 160 Lisinopril 20 mg 05/29/22 13:00 05/31/22 11:59 Lisinopril 20 Mg Tab PO 20 mg QDAY MEHUL Administration Montelukast Sodium 10 mg 05/30/22 18:00 05/31/22 18:24 Montelukast 10 Mg Tab PO 10 mg QPM MEHUL Administration Morphine Sulfate 2 mg 05/29/22 00:34 06/01/22 00:32 Morphine 2 Mg/1 Ml Inj IV 2 mg Q4H PRN Administration Pain, Moderate (4-6) Morphine Sulfate 4 mg 05/29/22 00:34 05/29/22 22:36 Morphine 4 Mg/1 Ml Inj IV 4 mg Q4H PRN Administration Pain , Severe (7-10) Ondansetron HCl 4 mg 05/29/22 00:34 06/01/22 00:30 Ondansetron 4 Mg/2 Ml Inj IV 4 mg Q8H PRN Administration Nausea And Vomiting Sodium Chloride 10 ml 05/29/22 10:00 05/31/22 21:47 Sodium Chloride 0.9% 10 Ml Flush Syringe IV 10 ml BID MEHUL Administration Sodium Chloride 10 ml 05/29/22 00:34 Sodium Chloride 0.9% 10 Ml Flush Syringe IV PRN PRN LINE FLUSH Nutrition/Malnutrition Assess - Dietary Evaluation Nutrition/Malnutrition Findings: Nutrition Notes Start: 05/30/22 11:07 Freq: Status: Active Protocol: Document 05/30/22 11:07 [facility] (Rec: 05/30/22 11:14 [facility] [id number]) Nutrition Notes Need for Assessment generated from: MD Order,Education Initial or Follow up Brief Note Current Diagnosis Diabetes,Hypertension Other Pertinent Diagnosis AMS, hyperglycemia Current Diet Cardiac/Consistent CHO Labs/Tests B, 87, 172 Pertinent Medications reviewed Height 5 ft 3 in Weight 113.398 kg [place] Body Weight (kg) 52.27 BMI 44.2 Weight Status Morbidly Obese Subjective/Other Information RD consulted for diet education. Pt admitted with active bedbugs; decontamination procedure performed. Pt with skin breakdown in sacral area. Burn Absent Trauma Absent Skin Integrity/Comment Sacral skin breakdown Minimum of two criteria No Fluid Accumulation Mild (non-severe) Is patient on ventilator? No Is Patient Ambulatory and/or Out of Bed No REE-([facility]-confined to bed) 1917.660 Kcal/Kg value to use for calculation 13 Approximate Energy Requirements Using 1474 kcal/Kg Calculation Used for Recommendations Kcal/kg Additional Notes Pro needs 1.25-1.5g/kg adjBW: 104-124g/day Fluid needs 1ml/kcal Nutrition Intervention Follow-Up By: 06/03/22 Additional Comments F/U: intakes, diet education needs
[2022-06-01] MEDS: CALCITRIOL 0.25 MCG CAP PO SCH (10:58)
[2022-06-01] MEDS: INSULIN GLARGINE 100 UNITS/ML SUB-Q SCH ×2 (10:58→22:23)
[2022-06-01] MEDS: HEPARIN 5,000 UNIT/1 ML VIAL SUB-Q SCH ×2 (10:58→21:53)
[2022-06-01] MEDS: FAMOTIDINE 20 MG TAB PO SCH ×2 (10:58→21:53)
[2022-06-01] MEDS: FUROSEMIDE 40 MG TAB PO SCH (10:58)
[2022-06-01] MEDS: hydrALAZINE 100 MG TAB PO SCH ×2 (10:58→21:53)
[2022-06-01] MEDS: atenoloL 50 MG TAB PO SCH (10:58)
[2022-06-01] MEDS: LISINOPRIL 20 MG TAB PO SCH (10:58)
[2022-06-01] MEDS: MONTELUKAST 10 MG TAB PO SCH (17:56)
[2022-06-02] MEDS: INSULIN LISPRO 100 UNIT/ML SUB-Q SCH ×4 (00:55→17:48)
--- NOTE | 2022-06-02 09:37 | Progress Note ---
Assessment and Plan Assessment and plan: 76-year-old morbidly obese female with diabetes and hypertension was brought to the emergency room because of hyperglycemia and altered mental status. Per charge nurse Francheska, EMS states that the patient's brother telephoned EMS because the patient had been weak, and not taking her insulin for the past 2 days. Patient was found to be incontinent of urine and covered in multiple urine soaked towels upon their arrival. Patient states "I just do not feel well." She denies any chest pain shortness of breath difficulty breathing or palpitations. No abdominal pain. No headache or head injury or loss of consciousness. Pain 0 out of 10. In the emergency room patient is found to have blood glucose of 425, bicarb of 26 and anion gap 19 subsequent blood glucose after 6 units of insulin is 279. Initial CT scan of the head shows no acute intracranial abnormality. Chest x- ray shows no focal infiltrate is seen. Patient also found to have a UTI . During her emergency because department course the patient was noted by staff members to have active live bedbugs. Decontamination to be performed by her emergency department nurse. Assessment and Plan: #UTI (urinary tract infection)- improving Treated with Rocephin 2 g IV daily. Urine Cx not completed, we will reorder #Acute toxic metabolic encephalopathy (resolved) -secondary to hyperglycemia and UTI. NPO. IV fluid half-normal saline at the rate of 125 cc/h. Humalog sliding scale every 6 hours fluid high-dose coverage. Lantus 10 units subcu every 12 hours. Diabetic education. Recheck BMP in the morning, 3 Rocephin 2 g IV daily # Hyperglycemic coma due to secondary diabetes, resolved Humalog sliding scale every 6 hours fluid high-dose coverage. Lantus 10 units subcu every 12 hours. Diabetic education. Recheck BMP in the morning # Hypertension Hydralazine 10 mg IV every 6 hours as needed. We continue the home medication #Morbid Obesity - BMI 44.3 - Counseled patient on the importance of weight loss, incorporating exercise, and dietary changes (lean meats, fresh fruits and vegetables, and water intake). Patient expresses understanding. Hospital Course: 05/30: Mentation improved. Aox4. Patient blood pressure low. Suspect iatrogenic cause. D/c clonidine. Resumed home regimen to restart this afternoon if BP tolerates. Downgrade to med/surg bed. Anticipate d/c in 24hrs. Dispo: home with brother. 05/31: Patient still with some weakness. We will check PT evaluation for disposition 06/01: Physical therapy recommending subacute rehab. We will discuss with case management placement 06/02: Patient completed Rocephin for UTI. Physical therapy recommends subacute rehab. Await placement History Interval history: No new issues overnight Hospitalist Physical - Constitutional Vitals: Temp Pulse Resp BP Pulse Ox 99 F 78 17 150/77 94 06/02/22 05:39 06/02/22 05:39 06/02/22 05:39 06/02/22 05:39 06/02/22 09:33 General appearance: Present: no acute distress, well-nourished - EENT Eyes: Present: PERRL, EOM intact ENT: hearing intact, clear oral mucosa, dentition normal - Neck Neck: Present: supple, normal ROM - Respiratory Respiratory effort: normal Respiratory: bilateral: CTA - Cardiovascular Rhythm: regular Heart Sounds: Present: S1 & S2. Absent: gallop, rub - Extremities Extremities: no ischemia, No edema, Full ROM - Abdominal General gastrointestinal: soft, non-tender, non-distended, normal bowel sounds - Integumentary Integumentary: Present: clear, warm, dry - Neurologic Neurologic: CNII-XII intact, moves all extremities Results - Labs CBC & Chem 7: 06/01/22 04:44 06/01/22 04:44 Labs: Laboratory Last Values WBC 6.8 K/mm3 (4.5-11.0) 06/01/22 04:44 RBC 4.06 M/mm3 (3.65-5.03) 06/01/22 04:44 Hgb 12.9 gm/dl (10.1-14.3) 06/01/22 04:44 Hct 39.8 % (30.3-42.9) 06/01/22 04:44 MCV 98 fl (79-97) H 06/01/22 04:44 MCH 32 pg (28-32) 06/01/22 04:44 MCHC 33 % (30-34) 06/01/22 04:44 RDW 14.0 % (13.2-15.2) 06/01/22 04:44 Plt Count 341 K/mm3 (140-440) 06/01/22 04:44 Lymph % (Auto) 39.8 % (13.4-35.0) H 06/01/22 04:44 [place] % (Auto) 11.0 % (0.0-7.3) H 06/01/22 04:44 Eos % (Auto) 2.0 % (0.0-4.3) 06/01/22 04:44 Baso % (Auto) 1.0 % (0.0-1.8) 06/01/22 04:44 Lymph # (Auto) 2.7 K/mm3 (1.2-5.4) 06/01/22 04:44 [place] # (Auto) 0.7 K/mm3 (0.0-0.8) 06/01/22 04:44 Eos # (Auto) 0.1 K/mm3 (0.0-0.4) 06/01/22 04:44 Baso # (Auto) 0.1 K/mm3 (0.0-0.1) 06/01/22 04:44 Seg Neutrophils % 46.2 % (40.0-70.0) 06/01/22 04:44 Seg Neutrophils # 3.2 K/mm3 (1.8-7.7) 06/01/22 04:44 Sodium 139 mmol/L (137-145) 06/01/22 04:44 Potassium 3.4 mmol/L (3.6-5.0) L 06/01/22 04:44 Chloride 102.0 mmol/L (98-107) 06/01/22 04:44 Carbon Dioxide 26 mmol/L (22-30) 06/01/22 04:44 Anion Gap 14 mmol/L 06/01/22 04:44 BUN 13 mg/dL (7-17) 06/01/22 04:44 Creatinine 1.0 mg/dL (0.6-1.2) 06/01/22 04:44 Estimated GFR > 60 ml/min 06/01/22 04:44 BUN/Creatinine Ratio 13 % 06/01/22 04:44 Glucose 184 mg/dL (65-100) H 06/01/22 04:44 POC Glucose 173 mg/dL (70-105) H 06/02/22 06:22 Lactic Acid 1.60 mmol/L (0.7-2.0) 05/29/22 00:24 Calcium 9.6 mg/dL (8.4-10.2) 06/01/22 04:44 Total Bilirubin 0.50 mg/dL (0.1-1.2) 05/28/22 21:51 AST 25 units/L (5-40) 05/28/22 21:51 ALT 16 units/L (7-56) 05/28/22 21:51 Alkaline Phosphatase 259 units/L (35-129) H 05/28/22 21:51 Total Protein 8.2 g/dL (6.3-8.2) 05/28/22 21:51 Albumin 3.7 g/dL (3.9-5) L 05/28/22 21:51 Albumin/Globulin Ratio 0.8 % 05/28/22 21:51 Urine Color Yellow (Yellow) 05/28/22 21:09 Urine Turbidity Slightly-cloudy (Clear) 05/28/22 21:09 Urine pH 5.0 (5.0-7.0) 05/28/22 21:09 Ur Specific [place] 1.018 (1.003-1.030) 05/28/22 21:09 Urine Protein <15 mg/dl mg/dL (Negative) 05/28/22 21:09 Urine Glucose (UA) >=500 mg/dL (Negative) 05/28/22 21:09 Urine Ketones 20 mg/dL (Negative) 05/28/22 21:09 Urine Blood Neg (Negative) 05/28/22 21:09 Urine Nitrite Pos (Negative) 05/28/22 21:09 Urine Bilirubin Neg (Negative) 05/28/22 21:09 Urine Urobilinogen < 2.0 mg/dL (<2.0) 05/28/22 21:09 Ur Leukocyte Esterase Lg (Negative) 05/28/22 21:09 Urine WBC (Auto) 143.0 /HPF (0.0-6.0) H 05/28/22 21:09 Urine RBC (Auto) 1.0 /HPF (0.0-6.0) 05/28/22 21:09 U Epithel Cells (Auto) < 1.0 /HPF (0-13.0) 05/28/22 21:09 Urine WBC Clumps 2+ /HPF 05/28/22 21:09 Urine Mucus Few /HPF 05/28/22 21:09 Moya/IV: Voiding Method External Female Catheter Active Medications - Current Medications Current Medications: Generic Name Dose Route Start Last Admin Trade Name Freq PRN Reason Stop Dose Admin Acetaminophen 650 mg 05/29/22 00:34 Acetaminophen 325 Mg Tab PO Q4H PRN Pain MILD(1-3)/Fever >100.5/DUARTE Albuterol 2.5 mg 05/29/22 00:34 Albuterol 2.5 Mg/3 Ml Nebu IH Q3HRT PRN Shortness Of Breath Atenolol 50 mg 05/30/22 10:00 06/01/22 10:58 Atenolol 50 Mg Tab PO 50 mg QDAY MEHUL Administration Atorvastatin Calcium 40 mg 05/30/22 22:00 06/01/22 21:53 Atorvastatin 40 Mg Tab PO 40 mg QHS MEHUL Administration Calcitriol 0.25 mcg 05/30/22 10:00 06/01/22 10:58 Calcitriol 0.25 Mcg Cap PO 0.25 mcg DAILY MEHUL Administration Dextrose 50 ml 05/29/22 00:34 Dextrose 50% In Water (25gm) 50 Ml Syringe IV Q30MIN PRN Hypoglycemia Protocol Famotidine 20 mg 05/30/22 10:00 06/01/22 21:53 Famotidine 20 Mg Tab PO 20 mg BID MEHUL Administration Furosemide 40 mg 05/30/22 10:00 06/01/22 10:58 Furosemide 40 Mg Tab PO 40 mg DAILY MEHUL Administration Heparin Sodium (Porcine) 5,000 unit 05/29/22 10:00 06/01/22 21:53 Heparin 5,000 Unit/1 Ml Vial SUB-Q 5,000 unit Q12HR MEHUL Administration Hydralazine HCl 100 mg 05/30/22 10:00 06/01/22 21:53 Hydralazine 100 Mg Tab PO 100 mg BID MEHUL Administration Insulin Glargine 10 units 05/29/22 10:00 06/01/22 22:23 Insulin Glargine 100 Units/Ml SUB-Q 10 units BID MEHUL Administration Insulin Human Lispro 0 unit 05/29/22 01:01 06/02/22 06:35 Insulin Lispro 100 Unit/Ml SUB-Q 3 unit Q6HR MEHUL Administration Protocol Labetalol HCl 10 mg 05/29/22 13:03 05/29/22 13:19 Labetalol 20 Mg/4 Ml Inj IV 10 mg Q4H PRN Administration sbp> 160 Lisinopril 20 mg 05/29/22 13:00 06/01/22 10:58 Lisinopril 20 Mg Tab PO 20 mg QDAY MEHUL Administration Montelukast Sodium 10 mg 05/30/22 18:00 06/01/22 17:56 Montelukast 10 Mg Tab PO 10 mg QPM MEHUL Administration Morphine Sulfate 2 mg 05/29/22 00:34 06/01/22 19:39 Morphine 2 Mg/1 Ml Inj IV 2 mg Q4H PRN Administration Pain, Moderate (4-6) Morphine Sulfate 4 mg 05/29/22 00:34 05/29/22 22:36 Morphine 4 Mg/1 Ml Inj IV 4 mg Q4H PRN Administration Pain , Severe (7-10) Ondansetron HCl 4 mg 05/29/22 00:34 06/01/22 00:30 Ondansetron 4 Mg/2 Ml Inj IV 4 mg Q8H PRN Administration Nausea And Vomiting Sodium Chloride 10 ml 05/29/22 10:00 06/01/22 21:54 Sodium Chloride 0.9% 10 Ml Flush Syringe IV 10 ml BID MEHUL Administration Sodium Chloride 10 ml 05/29/22 00:34 Sodium Chloride 0.9% 10 Ml Flush Syringe IV PRN PRN LINE FLUSH Nutrition/Malnutrition Assess - Dietary Evaluation Nutrition/Malnutrition Findings: Nutrition Notes Start: 05/30/22 11:07 Freq: Status: Active Protocol: Document 05/30/22 11:07 [facility] (Rec: 05/30/22 11:14 COUNTS INCLUDE 234 BEDS AT THE [facility] [id number]) Nutrition Notes Need for Assessment generated from: MD Order,Education Initial or Follow up Brief Note Current Diagnosis Diabetes,Hypertension Other Pertinent Diagnosis AMS, hyperglycemia Current Diet Cardiac/Consistent CHO Labs/Tests B, 87, 172 Pertinent Medications reviewed Height 5 ft 3 in Weight 113.398 kg [place] Body Weight (kg) 52.27 BMI 44.2 Weight Status Morbidly Obese Subjective/Other Information RD consulted for diet education. Pt admitted with active bedbugs; decontamination procedure performed. Pt with skin breakdown in sacral area. Burn Absent Trauma Absent Skin Integrity/Comment Sacral skin breakdown Minimum of two criteria No Fluid Accumulation Mild (non-severe) Is patient on ventilator? No Is Patient Ambulatory and/or Out of Bed No REE-([facility]-confined to bed) 1917.660 Kcal/Kg value to use for calculation 13 Approximate Energy Requirements Using 1474 kcal/Kg Calculation Used for Recommendations Kcal/kg Additional Notes Pro needs 1.25-1.5g/kg adjBW: 104-124g/day Fluid needs 1ml/kcal Nutrition Intervention Follow-Up By: 06/03/22 Additional Comments F/U: intakes, diet education needs
[2022-06-02] MEDS: HEPARIN 5,000 UNIT/1 ML VIAL SUB-Q SCH ×2 (10:07→22:53)
[2022-06-02] MEDS: INSULIN GLARGINE 100 UNITS/ML SUB-Q SCH ×2 (10:07→22:00)
[2022-06-02] MEDS: hydrALAZINE 100 MG TAB PO SCH ×2 (10:07→22:53)
[2022-06-02] MEDS: FUROSEMIDE 40 MG TAB PO SCH (10:07)
[2022-06-02] MEDS: CALCITRIOL 0.25 MCG CAP PO SCH (10:07)
[2022-06-02] MEDS: atenoloL 50 MG TAB PO SCH (10:07)
[2022-06-02] MEDS: LISINOPRIL 20 MG TAB PO SCH (10:08)
[2022-06-02] MEDS: FAMOTIDINE 20 MG TAB PO SCH ×2 (10:08→22:53)
[2022-06-02] MEDS: MORPHINE 2 MG/1 ML INJ IV PRN ×2 (10:19→20:23)
[2022-06-02] MEDS: MONTELUKAST 10 MG TAB PO SCH (17:48)
[2022-06-03] MEDS: MORPHINE 2 MG/1 ML INJ IV PRN ×2 (03:11→06:39)
[2022-06-03] MEDS: INSULIN LISPRO 100 UNIT/ML SUB-Q SCH ×4 (06:33→17:54)
[2022-06-03] MEDS: hydrALAZINE 100 MG TAB PO SCH ×2 (09:15→21:47)
[2022-06-03] MEDS: FUROSEMIDE 40 MG TAB PO SCH (09:15)
[2022-06-03] MEDS: CALCITRIOL 0.25 MCG CAP PO SCH (09:15)
[2022-06-03] MEDS: HEPARIN 5,000 UNIT/1 ML VIAL SUB-Q SCH ×2 (09:15→21:47)
[2022-06-03] MEDS: LISINOPRIL 20 MG TAB PO SCH (09:15)
[2022-06-03] MEDS: atenoloL 50 MG TAB PO SCH (09:15)
[2022-06-03] MEDS: FAMOTIDINE 20 MG TAB PO SCH ×2 (09:15→21:47)
[2022-06-03] MEDS: INSULIN GLARGINE 100 UNITS/ML SUB-Q SCH ×2 (09:16→22:08)
--- NOTE | 2022-06-03 10:06 | Progress Note ---
Assessment and Plan Assessment and plan: 76-year-old morbidly obese female with diabetes and hypertension was brought to the emergency room because of hyperglycemia and altered mental status. Per charge nurse Francheska, EMS states that the patient's brother telephoned EMS because the patient had been weak, and not taking her insulin for the past 2 days. Patient was found to be incontinent of urine and covered in multiple urine soaked towels upon their arrival. Patient states "I just do not feel well." She denies any chest pain shortness of breath difficulty breathing or palpitations. No abdominal pain. No headache or head injury or loss of consciousness. Pain 0 out of 10. In the emergency room patient is found to have blood glucose of 425, bicarb of 26 and anion gap 19 subsequent blood glucose after 6 units of insulin is 279. Initial CT scan of the head shows no acute intracranial abnormality. Chest x- ray shows no focal infiltrate is seen. Patient also found to have a UTI . During her emergency because department course the patient was noted by staff members to have active live bedbugs. Decontamination to be performed by her emergency department nurse. Assessment and Plan: #UTI (urinary tract infection)- improving Treated with Rocephin 2 g IV daily. Urine Cx not completed, we will reorder #Acute toxic metabolic encephalopathy (resolved) -secondary to hyperglycemia and UTI. NPO. IV fluid half-normal saline at the rate of 125 cc/h. Humalog sliding scale every 6 hours fluid high-dose coverage. Lantus 10 units subcu every 12 hours. Diabetic education. Recheck BMP in the morning, 3 Rocephin 2 g IV daily # Hyperglycemic coma due to secondary diabetes, resolved Humalog sliding scale every 6 hours fluid high-dose coverage. Lantus 10 units subcu every 12 hours. Diabetic education. Recheck BMP in the morning # Hypertension Hydralazine 10 mg IV every 6 hours as needed. We continue the home medication #Morbid Obesity - BMI 44.3 - Counseled patient on the importance of weight loss, incorporating exercise, and dietary changes (lean meats, fresh fruits and vegetables, and water intake). Patient expresses understanding. Hospital Course: 05/30: Mentation improved. Aox4. Patient blood pressure low. Suspect iatrogenic cause. D/c clonidine. Resumed home regimen to restart this afternoon if BP tolerates. Downgrade to med/surg bed. Anticipate d/c in 24hrs. Dispo: home with brother. 05/31: Patient still with some weakness. We will check PT evaluation for disposition 06/01: Physical therapy recommending subacute rehab. We will discuss with case management placement 06/02: Patient completed Rocephin for UTI. Physical therapy recommends subacute rehab. Await placement 06/03: Awaiting rehab placement History Interval history: No new issues overnight Hospitalist Physical - Constitutional Vitals: Temp Pulse Resp BP Pulse Ox 98.4 F 78 18 151/72 95 06/03/22 05:12 06/03/22 05:12 06/03/22 06:39 06/03/22 05:12 06/03/22 05:12 General appearance: Present: no acute distress, well-nourished - EENT Eyes: Present: PERRL, EOM intact ENT: hearing intact, clear oral mucosa, dentition normal - Neck Neck: Present: supple, normal ROM - Respiratory Respiratory effort: normal Respiratory: bilateral: CTA - Cardiovascular Rhythm: regular Heart Sounds: Present: S1 & S2. Absent: gallop, rub - Extremities Extremities: no ischemia, No edema, Full ROM - Abdominal General gastrointestinal: soft, non-tender, non-distended, normal bowel sounds - Integumentary Integumentary: Present: clear, warm, dry - Neurologic Neurologic: CNII-XII intact, moves all extremities Results - Labs CBC & Chem 7: 06/01/22 04:44 06/01/22 04:44 Labs: Laboratory Last Values WBC 6.8 K/mm3 (4.5-11.0) 06/01/22 04:44 RBC 4.06 M/mm3 (3.65-5.03) 06/01/22 04:44 Hgb 12.9 gm/dl (10.1-14.3) 06/01/22 04:44 Hct 39.8 % (30.3-42.9) 06/01/22 04:44 MCV 98 fl (79-97) H 06/01/22 04:44 MCH 32 pg (28-32) 06/01/22 04:44 MCHC 33 % (30-34) 06/01/22 04:44 RDW 14.0 % (13.2-15.2) 06/01/22 04:44 Plt Count 341 K/mm3 (140-440) 06/01/22 04:44 Lymph % (Auto) 39.8 % (13.4-35.0) H 06/01/22 04:44 [place] % (Auto) 11.0 % (0.0-7.3) H 06/01/22 04:44 Eos % (Auto) 2.0 % (0.0-4.3) 06/01/22 04:44 Baso % (Auto) 1.0 % (0.0-1.8) 06/01/22 04:44 Lymph # (Auto) 2.7 K/mm3 (1.2-5.4) 06/01/22 04:44 [place] # (Auto) 0.7 K/mm3 (0.0-0.8) 06/01/22 04:44 Eos # (Auto) 0.1 K/mm3 (0.0-0.4) 06/01/22 04:44 Baso # (Auto) 0.1 K/mm3 (0.0-0.1) 06/01/22 04:44 Seg Neutrophils % 46.2 % (40.0-70.0) 06/01/22 04:44 Seg Neutrophils # 3.2 K/mm3 (1.8-7.7) 06/01/22 04:44 Sodium 139 mmol/L (137-145) 06/01/22 04:44 Potassium 3.4 mmol/L (3.6-5.0) L 06/01/22 04:44 Chloride 102.0 mmol/L (98-107) 06/01/22 04:44 Carbon Dioxide 26 mmol/L (22-30) 06/01/22 04:44 Anion Gap 14 mmol/L 06/01/22 04:44 BUN 13 mg/dL (7-17) 06/01/22 04:44 Creatinine 1.0 mg/dL (0.6-1.2) 06/01/22 04:44 Estimated GFR > 60 ml/min 06/01/22 04:44 BUN/Creatinine Ratio 13 % 06/01/22 04:44 Glucose 184 mg/dL (65-100) H 06/01/22 04:44 POC Glucose 154 mg/dL (70-105) H 06/03/22 05:09 Lactic Acid 1.60 mmol/L (0.7-2.0) 05/29/22 00:24 Calcium 9.6 mg/dL (8.4-10.2) 06/01/22 04:44 Total Bilirubin 0.50 mg/dL (0.1-1.2) 05/28/22 21:51 AST 25 units/L (5-40) 05/28/22 21:51 ALT 16 units/L (7-56) 05/28/22 21:51 Alkaline Phosphatase 259 units/L (35-129) H 05/28/22 21:51 Total Protein 8.2 g/dL (6.3-8.2) 05/28/22 21:51 Albumin 3.7 g/dL (3.9-5) L 05/28/22 21:51 Albumin/Globulin Ratio 0.8 % 05/28/22 21:51 Urine Color Yellow (Yellow) 05/28/22 21:09 Urine Turbidity Slightly-cloudy (Clear) 05/28/22 21:09 Urine pH 5.0 (5.0-7.0) 05/28/22 21:09 Ur Specific [place] 1.018 (1.003-1.030) 05/28/22 21:09 Urine Protein <15 mg/dl mg/dL (Negative) 05/28/22 21:09 Urine Glucose (UA) >=500 mg/dL (Negative) 05/28/22 21:09 Urine Ketones 20 mg/dL (Negative) 05/28/22 21:09 Urine Blood Neg (Negative) 05/28/22 21:09 Urine Nitrite Pos (Negative) 05/28/22 21:09 Urine Bilirubin Neg (Negative) 05/28/22 21:09 Urine Urobilinogen < 2.0 mg/dL (<2.0) 05/28/22 21:09 Ur Leukocyte Esterase Lg (Negative) 05/28/22 21:09 Urine WBC (Auto) 143.0 /HPF (0.0-6.0) H 05/28/22 21:09 Urine RBC (Auto) 1.0 /HPF (0.0-6.0) 05/28/22 21:09 U Epithel Cells (Auto) < 1.0 /HPF (0-13.0) 05/28/22 21:09 Urine WBC Clumps 2+ /HPF 05/28/22 21:09 Urine Mucus Few /HPF 05/28/22 21:09 Moya/IV: Voiding Method External Female Catheter Active Medications - Current Medications Current Medications: Generic Name Dose Route Start Last Admin Trade Name Freq PRN Reason Stop Dose Admin Acetaminophen 650 mg 05/29/22 00:34 Acetaminophen 325 Mg Tab PO Q4H PRN Pain MILD(1-3)/Fever >100.5/DUARTE Albuterol 2.5 mg 05/29/22 00:34 Albuterol 2.5 Mg/3 Ml Nebu IH Q3HRT PRN Shortness Of Breath Atenolol 50 mg 05/30/22 10:00 06/03/22 09:15 Atenolol 50 Mg Tab PO 50 mg QDAY MEHUL Administration Atorvastatin Calcium 40 mg 05/30/22 22:00 06/02/22 22:53 Atorvastatin 40 Mg Tab PO 40 mg QHS MEHUL Administration Calcitriol 0.25 mcg 05/30/22 10:00 06/03/22 09:15 Calcitriol 0.25 Mcg Cap PO 0.25 mcg DAILY MEHUL Administration Dextrose 50 ml 05/29/22 00:34 Dextrose 50% In Water (25gm) 50 Ml Syringe IV Q30MIN PRN Hypoglycemia Protocol Famotidine 20 mg 05/30/22 10:00 06/03/22 09:15 Famotidine 20 Mg Tab PO 20 mg BID MEHUL Administration Furosemide 40 mg 05/30/22 10:00 06/03/22 09:15 Furosemide 40 Mg Tab PO 40 mg DAILY MEHUL Administration Heparin Sodium (Porcine) 5,000 unit 05/29/22 10:00 06/03/22 09:15 Heparin 5,000 Unit/1 Ml Vial SUB-Q 5,000 unit Q12HR MEHUL Administration Hydralazine HCl 100 mg 05/30/22 10:00 06/03/22 09:15 Hydralazine 100 Mg Tab PO 100 mg BID MEHUL Administration Insulin Glargine 10 units 05/29/22 10:00 06/03/22 09:16 Insulin Glargine 100 Units/Ml SUB-Q 10 units BID MEHUL Administration Insulin Human Lispro 0 unit 05/29/22 01:01 06/03/22 06:33 Insulin Lispro 100 Unit/Ml SUB-Q 3 unit Q6HR MEHUL Administration Protocol Labetalol HCl 10 mg 05/29/22 13:03 05/29/22 13:19 Labetalol 20 Mg/4 Ml Inj IV 10 mg Q4H PRN Administration sbp> 160 Lisinopril 20 mg 05/29/22 13:00 06/03/22 09:15 Lisinopril 20 Mg Tab PO 20 mg QDAY MEHUL Administration Montelukast Sodium 10 mg 05/30/22 18:00 06/02/22 17:48 Montelukast 10 Mg Tab PO 10 mg QPM MEHUL Administration Morphine Sulfate 2 mg 05/29/22 00:34 06/03/22 06:39 Morphine 2 Mg/1 Ml Inj IV 2 mg Q4H PRN Administration Pain, Moderate (4-6) Morphine Sulfate 4 mg 05/29/22 00:34 05/29/22 22:36 Morphine 4 Mg/1 Ml Inj IV 4 mg Q4H PRN Administration Pain , Severe (7-10) Ondansetron HCl 4 mg 05/29/22 00:34 06/01/22 00:30 Ondansetron 4 Mg/2 Ml Inj IV 4 mg Q8H PRN Administration Nausea And Vomiting Sodium Chloride 10 ml 05/29/22 10:00 06/03/22 09:16 Sodium Chloride 0.9% 10 Ml Flush Syringe IV 10 ml BID MEHUL Administration Sodium Chloride 10 ml 05/29/22 00:34 Sodium Chloride 0.9% 10 Ml Flush Syringe IV PRN PRN LINE FLUSH Nutrition/Malnutrition Assess - Dietary Evaluation Nutrition/Malnutrition Findings: Nutrition Notes Start: 05/30/22 11:07 Freq: Status: Active Protocol: Document 05/30/22 11:07 TERRENCE (Rec: 05/30/22 11:14 TERRENCE [id number]) Nutrition Notes Need for Assessment generated from: MD Order,Education Initial or Follow up Brief Note Current Diagnosis Diabetes,Hypertension Other Pertinent Diagnosis AMS, hyperglycemia Current Diet Cardiac/Consistent CHO Labs/Tests B, 87, 172 Pertinent Medications reviewed Height 5 ft 3 in Weight 113.398 kg [place] Body Weight (kg) 52.27 BMI 44.2 Weight Status Morbidly Obese Subjective/Other Information RD consulted for diet education. Pt admitted with active bedbugs; decontamination procedure performed. Pt with skin breakdown in sacral area. Burn Absent Trauma Absent Skin Integrity/Comment Sacral skin breakdown Minimum of two criteria No Fluid Accumulation Mild (non-severe) Is patient on ventilator? No Is Patient Ambulatory and/or Out of Bed No REE-([facility]-confined to bed) 1917.660 Kcal/Kg value to use for calculation 13 Approximate Energy Requirements Using 1474 kcal/Kg Calculation Used for Recommendations Kcal/kg Additional Notes Pro needs 1.25-1.5g/kg adjBW: 104-124g/day Fluid needs 1ml/kcal Nutrition Intervention Follow-Up By: 06/03/22 Additional Comments F/U: intakes, diet education needs
[2022-06-03] MEDS: MORPHINE 4 MG/1 ML INJ IV PRN (11:24)
[2022-06-03] MEDS: MONTELUKAST 10 MG TAB PO SCH (17:54)
[2022-06-04] MEDS: INSULIN LISPRO 100 UNIT/ML SUB-Q SCH ×5 (00:03→22:44)
[2022-06-04] MEDS: MORPHINE 2 MG/1 ML INJ IV PRN ×3 (00:03→14:57)
[2022-06-04] MEDS: HEPARIN 5,000 UNIT/1 ML VIAL SUB-Q SCH ×2 (09:53→21:22)
[2022-06-04] MEDS: atenoloL 50 MG TAB PO SCH (09:53)
[2022-06-04] MEDS: hydrALAZINE 100 MG TAB PO SCH ×2 (09:53→21:23)
[2022-06-04] MEDS: FAMOTIDINE 20 MG TAB PO SCH ×2 (09:53→21:23)
[2022-06-04] MEDS: INSULIN GLARGINE 100 UNITS/ML SUB-Q SCH ×2 (09:53→22:43)
[2022-06-04] MEDS: FUROSEMIDE 40 MG TAB PO SCH (09:53)
[2022-06-04] MEDS: CALCITRIOL 0.25 MCG CAP PO SCH (09:53)
[2022-06-04] MEDS: LISINOPRIL 20 MG TAB PO SCH (09:53)
--- NOTE | 2022-06-04 11:46 | Progress Note ---
Assessment and Plan Assessment and plan: 76-year-old morbidly obese female with diabetes and hypertension was brought to the emergency room because of hyperglycemia and altered mental status. Per charge nurse Francheska, EMS states that the patient's brother telephoned EMS because the patient had been weak, and not taking her insulin for the past 2 days. Patient was found to be incontinent of urine and covered in multiple urine soaked towels upon their arrival. Patient states "I just do not feel well." She denies any chest pain shortness of breath difficulty breathing or palpitations. No abdominal pain. No headache or head injury or loss of consciousness. Pain 0 out of 10. In the emergency room patient is found to have blood glucose of 425, bicarb of 26 and anion gap 19 subsequent blood glucose after 6 units of insulin is 279. Initial CT scan of the head shows no acute intracranial abnormality. Chest x- ray shows no focal infiltrate is seen. Patient also found to have a UTI . During her emergency because department course the patient was noted by staff members to have active live bedbugs. Decontamination to be performed by her emergency department nurse. Assessment and Plan: #UTI (urinary tract infection)- improving Treated with Rocephin 2 g IV daily. Urine Cx not completed, we will reorder #Acute toxic metabolic encephalopathy (resolved) -secondary to hyperglycemia and UTI. NPO. IV fluid half-normal saline at the rate of 125 cc/h. Humalog sliding scale every 6 hours fluid high-dose coverage. Lantus 10 units subcu every 12 hours. Diabetic education. Recheck BMP in the morning, 3 Rocephin 2 g IV daily # Hyperglycemic coma due to secondary diabetes, resolved Humalog sliding scale every 6 hours fluid high-dose coverage. Lantus 10 units subcu every 12 hours. Diabetic education. Recheck BMP in the morning # Hypertension Hydralazine 10 mg IV every 6 hours as needed. We continue the home medication #Morbid Obesity - BMI 44.3 - Counseled patient on the importance of weight loss, incorporating exercise, and dietary changes (lean meats, fresh fruits and vegetables, and water intake). Patient expresses understanding. Hospital Course: 05/30: Mentation improved. Aox4. Patient blood pressure low. Suspect iatrogenic cause. D/c clonidine. Resumed home regimen to restart this afternoon if BP tolerates. Downgrade to med/surg bed. Anticipate d/c in 24hrs. Dispo: home with brother. 05/31: Patient still with some weakness. We will check PT evaluation for disposition 06/01: Physical therapy recommending subacute rehab. We will discuss with case management placement 06/02: Patient completed Rocephin for UTI. Physical therapy recommends subacute rehab. Await placement 06/03: Awaiting rehab placement 06/04: Awaiting rehab placement History Interval history: No new issues overnight Hospitalist Physical - Constitutional Vitals: Temp Pulse Resp BP Pulse Ox 99.3 F 66 18 146/66 98 06/04/22 04:56 06/04/22 04:56 06/04/22 04:56 06/04/22 04:56 06/04/22 08:25 General appearance: Present: no acute distress, well-nourished - EENT Eyes: Present: PERRL, EOM intact ENT: hearing intact, clear oral mucosa, dentition normal - Neck Neck: Present: supple, normal ROM - Respiratory Respiratory effort: normal Respiratory: bilateral: CTA - Cardiovascular Rhythm: regular Heart Sounds: Present: S1 & S2. Absent: gallop, rub - Extremities Extremities: no ischemia, No edema, Full ROM - Abdominal General gastrointestinal: soft, non-tender, non-distended, normal bowel sounds - Integumentary Integumentary: Present: clear, warm, dry - Neurologic Neurologic: CNII-XII intact, moves all extremities Results - Labs CBC & Chem 7: 06/01/22 04:44 06/01/22 04:44 Labs: Laboratory Last Values WBC 6.8 K/mm3 (4.5-11.0) 06/01/22 04:44 RBC 4.06 M/mm3 (3.65-5.03) 06/01/22 04:44 Hgb 12.9 gm/dl (10.1-14.3) 06/01/22 04:44 Hct 39.8 % (30.3-42.9) 06/01/22 04:44 MCV 98 fl (79-97) H 06/01/22 04:44 MCH 32 pg (28-32) 06/01/22 04:44 MCHC 33 % (30-34) 06/01/22 04:44 RDW 14.0 % (13.2-15.2) 06/01/22 04:44 Plt Count 341 K/mm3 (140-440) 06/01/22 04:44 Lymph % (Auto) 39.8 % (13.4-35.0) H 06/01/22 04:44 [place] % (Auto) 11.0 % (0.0-7.3) H 06/01/22 04:44 Eos % (Auto) 2.0 % (0.0-4.3) 06/01/22 04:44 Baso % (Auto) 1.0 % (0.0-1.8) 06/01/22 04:44 Lymph # (Auto) 2.7 K/mm3 (1.2-5.4) 06/01/22 04:44 [place] # (Auto) 0.7 K/mm3 (0.0-0.8) 06/01/22 04:44 Eos # (Auto) 0.1 K/mm3 (0.0-0.4) 06/01/22 04:44 Baso # (Auto) 0.1 K/mm3 (0.0-0.1) 06/01/22 04:44 Seg Neutrophils % 46.2 % (40.0-70.0) 06/01/22 04:44 Seg Neutrophils # 3.2 K/mm3 (1.8-7.7) 06/01/22 04:44 Sodium 139 mmol/L (137-145) 06/01/22 04:44 Potassium 3.4 mmol/L (3.6-5.0) L 06/01/22 04:44 Chloride 102.0 mmol/L (98-107) 06/01/22 04:44 Carbon Dioxide 26 mmol/L (22-30) 06/01/22 04:44 Anion Gap 14 mmol/L 06/01/22 04:44 BUN 13 mg/dL (7-17) 06/01/22 04:44 Creatinine 1.0 mg/dL (0.6-1.2) 06/01/22 04:44 Estimated GFR > 60 ml/min 06/01/22 04:44 BUN/Creatinine Ratio 13 % 06/01/22 04:44 Glucose 184 mg/dL (65-100) H 06/01/22 04:44 POC Glucose 238 mg/dL (70-105) H 06/04/22 11:35 Lactic Acid 1.60 mmol/L (0.7-2.0) 05/29/22 00:24 Calcium 9.6 mg/dL (8.4-10.2) 06/01/22 04:44 Total Bilirubin 0.50 mg/dL (0.1-1.2) 05/28/22 21:51 AST 25 units/L (5-40) 05/28/22 21:51 ALT 16 units/L (7-56) 05/28/22 21:51 Alkaline Phosphatase 259 units/L (35-129) H 05/28/22 21:51 Total Protein 8.2 g/dL (6.3-8.2) 05/28/22 21:51 Albumin 3.7 g/dL (3.9-5) L 05/28/22 21:51 Albumin/Globulin Ratio 0.8 % 05/28/22 21:51 Urine Color Yellow (Yellow) 05/28/22 21:09 Urine Turbidity Slightly-cloudy (Clear) 05/28/22 21:09 Urine pH 5.0 (5.0-7.0) 05/28/22 21:09 Ur Specific [place] 1.018 (1.003-1.030) 05/28/22 21:09 Urine Protein <15 mg/dl mg/dL (Negative) 05/28/22 21:09 Urine Glucose (UA) >=500 mg/dL (Negative) 05/28/22 21:09 Urine Ketones 20 mg/dL (Negative) 05/28/22 21:09 Urine Blood Neg (Negative) 05/28/22 21:09 Urine Nitrite Pos (Negative) 05/28/22 21:09 Urine Bilirubin Neg (Negative) 05/28/22 21:09 Urine Urobilinogen < 2.0 mg/dL (<2.0) 05/28/22 21:09 Ur Leukocyte Esterase Lg (Negative) 05/28/22 21:09 Urine WBC (Auto) 143.0 /HPF (0.0-6.0) H 05/28/22 21:09 Urine RBC (Auto) 1.0 /HPF (0.0-6.0) 05/28/22 21:09 U Epithel Cells (Auto) < 1.0 /HPF (0-13.0) 05/28/22 21:09 Urine WBC Clumps 2+ /HPF 05/28/22 21:09 Urine Mucus Few /HPF 05/28/22 21:09 Moya/IV: Voiding Method External Female Catheter Active Medications - Current Medications Current Medications: Generic Name Dose Route Start Last Admin Trade Name Freq PRN Reason Stop Dose Admin Acetaminophen 650 mg 05/29/22 00:34 Acetaminophen 325 Mg Tab PO Q4H PRN Pain MILD(1-3)/Fever >100.5/DUARTE Albuterol 2.5 mg 05/29/22 00:34 Albuterol 2.5 Mg/3 Ml Nebu IH Q3HRT PRN Shortness Of Breath Atenolol 50 mg 05/30/22 10:00 06/04/22 09:53 Atenolol 50 Mg Tab PO 50 mg QDAY MEHUL Administration Atorvastatin Calcium 40 mg 05/30/22 22:00 06/03/22 21:47 Atorvastatin 40 Mg Tab PO 40 mg QHS MEHUL Administration Calcitriol 0.25 mcg 05/30/22 10:00 06/04/22 09:53 Calcitriol 0.25 Mcg Cap PO 0.25 mcg DAILY MEHUL Administration Dextrose 50 ml 05/29/22 00:34 Dextrose 50% In Water (25gm) 50 Ml Syringe IV Q30MIN PRN Hypoglycemia Protocol Famotidine 20 mg 05/30/22 10:00 06/04/22 09:53 Famotidine 20 Mg Tab PO 20 mg BID MEHUL Administration Furosemide 40 mg 05/30/22 10:00 06/04/22 09:53 Furosemide 40 Mg Tab PO 40 mg DAILY MEHUL Administration Heparin Sodium (Porcine) 5,000 unit 05/29/22 10:00 06/04/22 09:53 Heparin 5,000 Unit/1 Ml Vial SUB-Q 5,000 unit Q12HR MEHUL Administration Hydralazine HCl 100 mg 05/30/22 10:00 06/04/22 09:53 Hydralazine 100 Mg Tab PO 100 mg BID MEHUL Administration Insulin Glargine 10 units 05/29/22 10:00 06/04/22 09:53 Insulin Glargine 100 Units/Ml SUB-Q 10 units BID MEHUL Administration Insulin Human Lispro 0 unit 06/04/22 11:30 Insulin Lispro 100 Unit/Ml SUB-Q ACHS MEHUL Protocol Labetalol HCl 10 mg 05/29/22 13:03 05/29/22 13:19 Labetalol 20 Mg/4 Ml Inj IV 10 mg Q4H PRN Administration sbp> 160 Lisinopril 20 mg 05/29/22 13:00 06/04/22 09:53 Lisinopril 20 Mg Tab PO 20 mg QDAY MEHUL Administration Montelukast Sodium 10 mg 05/30/22 18:00 06/03/22 17:54 Montelukast 10 Mg Tab PO 10 mg QPM MEHLU Administration Morphine Sulfate 2 mg 05/29/22 00:34 06/04/22 09:54 Morphine 2 Mg/1 Ml Inj IV 2 mg Q4H PRN Administration Pain, Moderate (4-6) Morphine Sulfate 4 mg 05/29/22 00:34 06/03/22 11:24 Morphine 4 Mg/1 Ml Inj IV 4 mg Q4H PRN Administration Pain , Severe (7-10) Ondansetron HCl 4 mg 05/29/22 00:34 06/01/22 00:30 Ondansetron 4 Mg/2 Ml Inj IV 4 mg Q8H PRN Administration Nausea And Vomiting Sodium Chloride 10 ml 05/29/22 10:00 06/04/22 09:54 Sodium Chloride 0.9% 10 Ml Flush Syringe IV 10 ml BID MEHUL Administration Sodium Chloride 10 ml 05/29/22 00:34 06/04/22 00:04 Sodium Chloride 0.9% 10 Ml Flush Syringe IV 10 ml PRN PRN Administration LINE FLUSH Nutrition/Malnutrition Assess - Dietary Evaluation Nutrition/Malnutrition Findings: Nutrition Notes Start: 05/30/22 11:07 Freq: Status: Active Protocol: Document 06/03/22 10:53 HEMAL (Rec: 06/03/22 11:40 HEMAL [id number]) Nutrition Notes Initial or Follow up Assessment Current Diagnosis Decubitus(Pressure Ulcer), Diabetes,Hypertension Other Pertinent Diagnosis UTI, AMS. Current Diet Consistent Carbohydrates Diet (since D 05/29), D Suppl (from D 06/03). Labs/Tests 06/01: K 3.4, Glu 184. Pertinent Medications 06/03: Lantus 10U, Humalog 3U, others nutritionally unremarkable. Height 5 ft 3 in Weight 113.398 kg [place] Body Weight (kg) 52.27 BMI 44.2 Intake Prior to Admission Good Weight change and time frame Pt denies having loss body weight [employer]. No body weight change reported in 4 days. Weight Status Morbidly Obese Subjective/Other Information RD consult for routine F/U on dietary advancement and nutrition education assessment . Pt's PO intake of meals has been Fair (50%) and fairly tolerated, according to ADL notes. Pt is on Room Air, O2 saturation @ 98%, according to Physical Assessment History notes. Pt has missing teeth, according to Physical Assessment History notes. Pt presents a sacral decubitus ulcer stages 1 and 2, according to Physical Assessment History notes. I will prescribe dietary supplements to support wound healing processes during LOS. Pt will be discharged to a Subacute Rehab Facility, according to Progress notes. Pt needs total assistance with ADL activities, not a candidate for Nutrition Education. Percent of energy/protein needs met: Prescribed Consistent Carbohydrates Diet provides for energy/protein needs (2, 061 Kcal/91 g) during LOS; additionally, Dietary Supplements will support wound healing processes with 190 Kcal and 5 g of protein. Burn Absent Trauma Absent GI Symptoms None Food Allergy No Skin Integrity/Comment Stages 1 & 2 Sacral decubitus wound Current % PO Fair (50-74%) Minimum of two criteria No Fluid Accumulation N/A Reduced Web Ui Developer Strength N/A (non-severe) Protein-Calorie Malnutrition N\\A #1 Nutrition Diagnosis Increased nutrient needs ( specify in comment below) Comments: Protein to support wound healing processes. Etiology Pt being bedbound, negligence. As Evidenced by Signs and Symptoms Pt presents a sacral decubitus ulcers stages 1 and 2, according to Physical Assessment History notes. Is patient on ventilator? No Is Patient Ambulatory and/or Out of Bed No REE-([facility]-confined to bed) 1917.660 Kcal/Kg value to use for calculation 13 Approximate Energy Requirements Using 1474 kcal/Kg Calculation Used for Recommendations Kcal/kg Additional Notes Protein: 1.25-1.5 g/Kg AdjBW; 104-124 g/day. Fluids: 1 ml/Kcal, or as per MD. Nutrition Intervention Change Diet Order: Continue Consistent Carbohydrates Diet. Add Supplement/Snack (indicate name/kcal Start 28.8 g pkt Timmy; BID. /protein ) Provides kCal: 190 Provides Protein (gm) 5 Goal #1 Support, through dietary supplementation, wound healing processes during LOS. Goal #2 Adjust the dietary intervention to better serve Pt's needs and clinical conditions during LOS. Follow-Up By: 06/10/22 Additional Comments Continue monitoring food tolerance, %PO intake of meals , dietary supplements, and BM.
[2022-06-04] MEDS: MONTELUKAST 10 MG TAB PO SCH (17:22)
[2022-06-05] MEDS: INSULIN LISPRO 100 UNIT/ML SUB-Q SCH ×4 (08:11→22:16)
[2022-06-05] MEDS: INSULIN GLARGINE 100 UNITS/ML SUB-Q SCH ×2 (10:54→22:16)
[2022-06-05] MEDS: HEPARIN 5,000 UNIT/1 ML VIAL SUB-Q SCH ×2 (10:55→22:15)
[2022-06-05] MEDS: hydrALAZINE 100 MG TAB PO SCH ×2 (10:56→22:15)
[2022-06-05] MEDS: LISINOPRIL 20 MG TAB PO SCH (10:56)
[2022-06-05] MEDS: FAMOTIDINE 20 MG TAB PO SCH ×2 (10:56→22:15)
[2022-06-05] MEDS: FUROSEMIDE 40 MG TAB PO SCH (10:56)
[2022-06-05] MEDS: CALCITRIOL 0.25 MCG CAP PO SCH (10:56)
[2022-06-05] MEDS: atenoloL 50 MG TAB PO SCH (10:57)
[2022-06-05] MEDS: MORPHINE 4 MG/1 ML INJ IV PRN ×2 (15:23→22:18)
--- NOTE | 2022-06-05 16:08 | Progress Note ---
Assessment and Plan Assessment and plan: 76-year-old morbidly obese female with diabetes and hypertension was brought to the emergency room because of hyperglycemia and altered mental status. Per charge nurse Francheska, EMS states that the patient's brother telephoned EMS because the patient had been weak, and not taking her insulin for the past 2 days. Patient was found to be incontinent of urine and covered in multiple urine soaked towels upon their arrival. Patient states "I just do not feel well." She denies any chest pain shortness of breath difficulty breathing or palpitations. No abdominal pain. No headache or head injury or loss of consciousness. Pain 0 out of 10. In the emergency room patient is found to have blood glucose of 425, bicarb of 26 and anion gap 19 subsequent blood glucose after 6 units of insulin is 279. Initial CT scan of the head shows no acute intracranial abnormality. Chest x- ray shows no focal infiltrate is seen. Patient also found to have a UTI . During her emergency because department course the patient was noted by staff members to have active live bedbugs. Decontamination to be performed by her emergency department nurse. Assessment and Plan: #UTI (urinary tract infection)- improving Treated with Rocephin 2 g IV daily. Urine Cx not completed, we will reorder #Acute toxic metabolic encephalopathy (resolved) -secondary to hyperglycemia and UTI. NPO. IV fluid half-normal saline at the rate of 125 cc/h. Humalog sliding scale every 6 hours fluid high-dose coverage. Lantus 10 units subcu every 12 hours. Diabetic education. Recheck BMP in the morning, 3 Rocephin 2 g IV daily # Hyperglycemic coma due to secondary diabetes, resolved Humalog sliding scale every 6 hours fluid high-dose coverage. Lantus 10 units subcu every 12 hours. Diabetic education. Recheck BMP in the morning # Hypertension Hydralazine 10 mg IV every 6 hours as needed. We continue the home medication #Morbid Obesity - BMI 44.3 - Counseled patient on the importance of weight loss, incorporating exercise, and dietary changes (lean meats, fresh fruits and vegetables, and water intake). Patient expresses understanding. Hospital Course: 05/30: Mentation improved. Aox4. Patient blood pressure low. Suspect iatrogenic cause. D/c clonidine. Resumed home regimen to restart this afternoon if BP tolerates. Downgrade to med/surg bed. Anticipate d/c in 24hrs. Dispo: home with brother. 05/31: Patient still with some weakness. We will check PT evaluation for disposition 06/01: Physical therapy recommending subacute rehab. We will discuss with case management placement 06/02: Patient completed Rocephin for UTI. Physical therapy recommends subacute rehab. Await placement 06/03: Awaiting rehab placement 06/04: Awaiting rehab placement 06/05: Patient completed Rocephin for UTI. Physical therapy recommends subacute rehab. Await placement History Interval history: No new issues overnight Hospitalist Physical - Constitutional Vitals: Temp Pulse Resp BP Pulse Ox 98.9 F 97 H 28 H 129/68 98 06/05/22 11:57 06/05/22 11:57 06/05/22 11:57 06/05/22 11:57 06/05/22 11:57 General appearance: Present: no acute distress, well-nourished - EENT Eyes: Present: PERRL, EOM intact ENT: hearing intact, clear oral mucosa, dentition normal - Neck Neck: Present: supple, normal ROM - Respiratory Respiratory effort: normal Respiratory: bilateral: CTA - Cardiovascular Rhythm: regular Heart Sounds: Present: S1 & S2. Absent: gallop, rub - Extremities Extremities: no ischemia, No edema, Full ROM - Abdominal General gastrointestinal: soft, non-tender, non-distended, normal bowel sounds - Integumentary Integumentary: Present: clear, warm, dry - Neurologic Neurologic: CNII-XII intact, moves all extremities Results - Labs CBC & Chem 7: 06/01/22 04:44 06/01/22 04:44 Labs: Laboratory Last Values WBC 6.8 K/mm3 (4.5-11.0) 06/01/22 04:44 RBC 4.06 M/mm3 (3.65-5.03) 06/01/22 04:44 Hgb 12.9 gm/dl (10.1-14.3) 06/01/22 04:44 Hct 39.8 % (30.3-42.9) 06/01/22 04:44 MCV 98 fl (79-97) H 06/01/22 04:44 MCH 32 pg (28-32) 06/01/22 04:44 MCHC 33 % (30-34) 06/01/22 04:44 RDW 14.0 % (13.2-15.2) 06/01/22 04:44 Plt Count 341 K/mm3 (140-440) 06/01/22 04:44 Lymph % (Auto) 39.8 % (13.4-35.0) H 06/01/22 04:44 Stanton % (Auto) 11.0 % (0.0-7.3) H 06/01/22 04:44 Eos % (Auto) 2.0 % (0.0-4.3) 06/01/22 04:44 Baso % (Auto) 1.0 % (0.0-1.8) 06/01/22 04:44 Lymph # (Auto) 2.7 K/mm3 (1.2-5.4) 06/01/22 04:44 Stanton # (Auto) 0.7 K/mm3 (0.0-0.8) 06/01/22 04:44 Eos # (Auto) 0.1 K/mm3 (0.0-0.4) 06/01/22 04:44 Baso # (Auto) 0.1 K/mm3 (0.0-0.1) 06/01/22 04:44 Seg Neutrophils % 46.2 % (40.0-70.0) 06/01/22 04:44 Seg Neutrophils # 3.2 K/mm3 (1.8-7.7) 06/01/22 04:44 Sodium 139 mmol/L (137-145) 06/01/22 04:44 Potassium 3.4 mmol/L (3.6-5.0) L 06/01/22 04:44 Chloride 102.0 mmol/L (98-107) 06/01/22 04:44 Carbon Dioxide 26 mmol/L (22-30) 06/01/22 04:44 Anion Gap 14 mmol/L 06/01/22 04:44 BUN 13 mg/dL (7-17) 06/01/22 04:44 Creatinine 1.0 mg/dL (0.6-1.2) 06/01/22 04:44 Estimated GFR > 60 ml/min 06/01/22 04:44 BUN/Creatinine Ratio 13 % 06/01/22 04:44 Glucose 184 mg/dL (65-100) H 06/01/22 04:44 POC Glucose 220 mg/dL (70-105) H 06/05/22 12:28 Lactic Acid 1.60 mmol/L (0.7-2.0) 05/29/22 00:24 Calcium 9.6 mg/dL (8.4-10.2) 06/01/22 04:44 Total Bilirubin 0.50 mg/dL (0.1-1.2) 05/28/22 21:51 AST 25 units/L (5-40) 05/28/22 21:51 ALT 16 units/L (7-56) 05/28/22 21:51 Alkaline Phosphatase 259 units/L (35-129) H 05/28/22 21:51 Total Protein 8.2 g/dL (6.3-8.2) 05/28/22 21:51 Albumin 3.7 g/dL (3.9-5) L 05/28/22 21:51 Albumin/Globulin Ratio 0.8 % 05/28/22 21:51 Urine Color Yellow (Yellow) 05/28/22 21:09 Urine Turbidity Slightly-cloudy (Clear) 05/28/22 21:09 Urine pH 5.0 (5.0-7.0) 05/28/22 21:09 Ur Specific [place] 1.018 (1.003-1.030) 05/28/22 21:09 Urine Protein <15 mg/dl mg/dL (Negative) 05/28/22 21:09 Urine Glucose (UA) >=500 mg/dL (Negative) 05/28/22 21:09 Urine Ketones 20 mg/dL (Negative) 05/28/22 21:09 Urine Blood Neg (Negative) 05/28/22 21:09 Urine Nitrite Pos (Negative) 05/28/22 21:09 Urine Bilirubin Neg (Negative) 05/28/22 21:09 Urine Urobilinogen < 2.0 mg/dL (<2.0) 05/28/22 21:09 Ur Leukocyte Esterase Lg (Negative) 05/28/22 21:09 Urine WBC (Auto) 143.0 /HPF (0.0-6.0) H 05/28/22 21:09 Urine RBC (Auto) 1.0 /HPF (0.0-6.0) 05/28/22 21:09 U Epithel Cells (Auto) < 1.0 /HPF (0-13.0) 05/28/22 21:09 Urine WBC Clumps 2+ /HPF 05/28/22 21:09 Urine Mucus Few /HPF 05/28/22 21:09 Microbiology: Microbiology 06/03/22 Unknown Urine,Catheterized - Straight Catheter Urine Culture - Preliminary Pseudomonas Aeruginosa Enterococcus Faecalis Moya/IV: Voiding Method External Female Catheter Active Medications - Current Medications Current Medications: Generic Name Dose Route Start Last Admin Trade Name Freq PRN Reason Stop Dose Admin Acetaminophen 650 mg 05/29/22 00:34 06/05/22 08:13 Acetaminophen 325 Mg Tab PO 650 mg Q4H PRN Administration Pain MILD(1-3)/Fever >100.5/DUARTE Albuterol 2.5 mg 05/29/22 00:34 Albuterol 2.5 Mg/3 Ml Nebu IH Q3HRT PRN Shortness Of Breath Atenolol 50 mg 05/30/22 10:00 06/05/22 10:57 Atenolol 50 Mg Tab PO 50 mg QDAY MEHUL Administration Atorvastatin Calcium 40 mg 05/30/22 22:00 06/04/22 21:23 Atorvastatin 40 Mg Tab PO 40 mg QHS MEHUL Administration Calcitriol 0.25 mcg 05/30/22 10:00 06/05/22 10:56 Calcitriol 0.25 Mcg Cap PO 0.25 mcg DAILY MEHUL Administration Dextrose 50 ml 05/29/22 00:34 Dextrose 50% In Water (25gm) 50 Ml Syringe IV Q30MIN PRN Hypoglycemia Protocol Famotidine 20 mg 05/30/22 10:00 06/05/22 10:56 Famotidine 20 Mg Tab PO 20 mg BID MEHUL Administration Furosemide 40 mg 05/30/22 10:00 06/05/22 10:56 Furosemide 40 Mg Tab PO 40 mg DAILY MEHUL Administration Heparin Sodium (Porcine) 5,000 unit 05/29/22 10:00 06/05/22 10:55 Heparin 5,000 Unit/1 Ml Vial SUB-Q 5,000 unit Q12HR MEHUL Administration Hydralazine HCl 100 mg 05/30/22 10:00 06/05/22 10:56 Hydralazine 100 Mg Tab PO 100 mg BID MEHUL Administration Insulin Glargine 10 units 05/29/22 10:00 06/05/22 10:54 Insulin Glargine 100 Units/Ml SUB-Q 10 units BID MEHUL Administration Insulin Human Lispro 0 unit 06/04/22 11:30 06/05/22 12:49 Insulin Lispro 100 Unit/Ml SUB-Q 4 unit ACHS MEHUL Administration Protocol Labetalol HCl 10 mg 05/29/22 13:03 05/29/22 13:19 Labetalol 20 Mg/4 Ml Inj IV 10 mg Q4H PRN Administration sbp> 160 Lisinopril 20 mg 05/29/22 13:00 06/05/22 10:56 Lisinopril 20 Mg Tab PO 20 mg QDAY MEHUL Administration Montelukast Sodium 10 mg 05/30/22 18:00 06/04/22 17:22 Montelukast 10 Mg Tab PO 10 mg QPM MEHUL Administration Morphine Sulfate 2 mg 05/29/22 00:34 06/04/22 14:57 Morphine 2 Mg/1 Ml Inj IV 2 mg Q4H PRN Administration Pain, Moderate (4-6) Morphine Sulfate 4 mg 05/29/22 00:34 06/05/22 15:23 Morphine 4 Mg/1 Ml Inj IV 4 mg Q4H PRN Administration Pain , Severe (7-10) Ondansetron HCl 4 mg 05/29/22 00:34 06/01/22 00:30 Ondansetron 4 Mg/2 Ml Inj IV 4 mg Q8H PRN Administration Nausea And Vomiting Sodium Chloride 10 ml 05/29/22 10:00 06/05/22 10:58 Sodium Chloride 0.9% 10 Ml Flush Syringe IV 10 ml BID MEHUL Administration Sodium Chloride 10 ml 05/29/22 00:34 06/04/22 00:04 Sodium Chloride 0.9% 10 Ml Flush Syringe IV 10 ml PRN PRN Administration LINE FLUSH Nutrition/Malnutrition Assess - Dietary Evaluation Nutrition/Malnutrition Findings: Nutrition Notes Start: 05/30/22 11:07 Freq: Status: Active Protocol: Document 06/03/22 10:53 HEMAL (Rec: 06/03/22 11:40 HEMAL [id number]) Nutrition Notes Initial or Follow up Assessment Current Diagnosis Decubitus(Pressure Ulcer), Diabetes,Hypertension Other Pertinent Diagnosis UTI, AMS. Current Diet Consistent Carbohydrates Diet (since D 05/29), D Suppl (from D 06/03). Labs/Tests 06/01: K 3.4, Glu 184. Pertinent Medications 06/03: Lantus 10U, Humalog 3U, others nutritionally unremarkable. 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 No body weight change reported in 4 days. Weight Status Morbidly Obese Subjective/Other Information RD consult for routine F/U on dietary advancement and nutrition education assessment . Pt's PO intake of meals has been Fair (50%) and fairly tolerated, according to ADL notes. Pt is on Room Air, O2 saturation @ 98%, according to Physical Assessment History notes. Pt has missing teeth, according to Physical Assessment History notes. Pt presents a sacral decubitus ulcer stages 1 and 2, according to Physical Assessment History notes. I will prescribe dietary supplements to support wound healing processes during LOS. Pt will be discharged to a Subacute Rehab Facility, according to Progress notes. Pt needs total assistance with ADL activities, not a candidate for Nutrition Education. Percent of energy/protein needs met: Prescribed Consistent Carbohydrates Diet provides for energy/protein needs (2, 061 Kcal/91 g) during LOS; additionally, Dietary Supplements will support wound healing processes with 190 Kcal and 5 g of protein. 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 Etiology Pt being bedbound, negligence. As Evidenced by Signs and Symptoms Pt presents a sacral decubitus ulcers stages 1 and 2, according to Physical Assessment History notes. Is patient on ventilator? No Is Patient Ambulatory and/or Out of Bed No REE-([facility]-confined to bed) 1916.660 Kcal/Kg value to use for calculation 13 Approximate Energy Requirements Using 1474 kcal/Kg Calculation Used for Recommendations Kcal/kg Additional Notes Protein: 1.25-1.5 g/Kg AdjBW; 104-124 g/day. Fluids: 1 ml/Kcal, or as per MD. Nutrition Intervention Change Diet Order: Continue Consistent Carbohydrates Diet. Add Supplement/Snack (indicate name/kcal Start 28.8 g pkt Itmmy; BID. /protein ) Provides kCal: 190 Provides Protein (gm) 5 Goal #1 Support, through dietary supplementation, wound healing processes during LOS. Goal #2 Adjust the dietary intervention to better serve Pt's needs and clinical conditions during LOS. Follow-Up By: 06/10/22 Additional Comments Continue monitoring food tolerance, %PO intake of meals , dietary supplements, and BM.
[2022-06-05] MEDS: MONTELUKAST 10 MG TAB PO SCH (17:06)
[2022-06-06] MEDS ORDERED: diphenhydrAMINE 50 MG/ML VIAL IV ONE (01:40)
[2022-06-06] MEDS: MORPHINE 2 MG/1 ML INJ IV PRN ×2 (03:03→11:11)
--- NOTE | 2022-06-06 09:57 | Progress Note ---
Assessment and Plan Assessment and plan: 76-year-old morbidly obese female with diabetes and hypertension was brought to the emergency room because of hyperglycemia and altered mental status. Per charge nurse Francheska, EMS states that the patient's brother telephoned EMS because the patient had been weak, and not taking her insulin for the past 2 days. Patient was found to be incontinent of urine and covered in multiple urine soaked towels upon their arrival. Patient states "I just do not feel well." She denies any chest pain shortness of breath difficulty breathing or palpitations. No abdominal pain. No headache or head injury or loss of consciousness. Pain 0 out of 10. In the emergency room patient is found to have blood glucose of 425, bicarb of 26 and anion gap 19 subsequent blood glucose after 6 units of insulin is 279. Initial CT scan of the head shows no acute intracranial abnormality. Chest x- ray shows no focal infiltrate is seen. Patient also found to have a UTI . During her emergency because department course the patient was noted by staff members to have active live bedbugs. Decontamination to be performed by her emergency department nurse. Assessment and Plan: #UTI (urinary tract infection)- improving Treated with Rocephin 2 g IV daily. Urine Cx not completed, we will reorder #Acute toxic metabolic encephalopathy (resolved) -secondary to hyperglycemia and UTI. NPO. IV fluid half-normal saline at the rate of 125 cc/h. Humalog sliding scale every 6 hours fluid high-dose coverage. Lantus 10 units subcu every 12 hours. Diabetic education. Recheck BMP in the morning, 3 Rocephin 2 g IV daily # Hyperglycemic coma due to secondary diabetes, resolved Humalog sliding scale every 6 hours fluid high-dose coverage. Lantus 10 units subcu every 12 hours. Diabetic education. Recheck BMP in the morning # Hypertension Hydralazine 10 mg IV every 6 hours as needed. We continue the home medication #Morbid Obesity - BMI 44.3 - Counseled patient on the importance of weight loss, incorporating exercise, and dietary changes (lean meats, fresh fruits and vegetables, and water intake). Patient expresses understanding. Hospital Course: 05/30: Mentation improved. Aox4. Patient blood pressure low. Suspect iatrogenic cause. D/c clonidine. Resumed home regimen to restart this afternoon if BP tolerates. Downgrade to med/surg bed. Anticipate d/c in 24hrs. Dispo: home with brother. 05/31: Patient still with some weakness. We will check PT evaluation for disposition 06/01: Physical therapy recommending subacute rehab. We will discuss with case management placement 06/02: Patient completed Rocephin for UTI. Physical therapy recommends subacute rehab. Await placement 06/03: Awaiting rehab placement 06/04: Awaiting rehab placement 06/05: Patient completed Rocephin for UTI. Physical therapy recommends subacute rehab. Await placement 06/06; blood sugars reasonable level, PT recommended subacute rehab, DC planning per case management History Interval history: I have seen and examined the patient at the bedside this morning Patient's chart and medications reviewed Patient's blood sugars are reasonable level Vital signs noted vital signs noted Patient is morbidly obese Hospitalist Physical - Constitutional Vitals: Temp Pulse Resp BP Pulse Ox 98.2 F 59 L 17 149/61 95 06/06/22 06:17 06/06/22 06:17 06/06/22 06:17 06/06/22 06:17 06/06/22 06:17 General appearance: Present: no acute distress, well-nourished, obese (Morbidly obese) - EENT Eyes: Present: PERRL, EOM intact - Neck Neck: Present: supple, normal ROM - Respiratory Respiratory effort: normal Respiratory: bilateral: diminished, negative: rales, rhonchi, wheezing - Cardiovascular Rhythm: regular Heart Sounds: Present: S1 & S2 - Extremities Extremities: no ischemia, No edema - Abdominal General gastrointestinal: soft, non-tender, non-distended, normal bowel sounds - Integumentary Integumentary: Present: clear, warm - Psychiatric Psychiatric: appropriate mood/affect, cooperative - Neurologic Neurologic: moves all extremities Results - Labs CBC & Chem 7: 06/01/22 04:44 06/01/22 04:44 Labs: Laboratory Last Values WBC 6.8 K/mm3 (4.5-11.0) 06/01/22 04:44 RBC 4.06 M/mm3 (3.65-5.03) 06/01/22 04:44 Hgb 12.9 gm/dl (10.1-14.3) 06/01/22 04:44 Hct 39.8 % (30.3-42.9) 06/01/22 04:44 MCV 98 fl (79-97) H 06/01/22 04:44 MCH 32 pg (28-32) 06/01/22 04:44 MCHC 33 % (30-34) 06/01/22 04:44 RDW 14.0 % (13.2-15.2) 06/01/22 04:44 Plt Count 341 K/mm3 (140-440) 06/01/22 04:44 Lymph % (Auto) 39.8 % (13.4-35.0) H 06/01/22 04:44 [place] % (Auto) 11.0 % (0.0-7.3) H 06/01/22 04:44 Eos % (Auto) 2.0 % (0.0-4.3) 06/01/22 04:44 Baso % (Auto) 1.0 % (0.0-1.8) 06/01/22 04:44 Lymph # (Auto) 2.7 K/mm3 (1.2-5.4) 06/01/22 04:44 [place] # (Auto) 0.7 K/mm3 (0.0-0.8) 06/01/22 04:44 Eos # (Auto) 0.1 K/mm3 (0.0-0.4) 06/01/22 04:44 Baso # (Auto) 0.1 K/mm3 (0.0-0.1) 06/01/22 04:44 Seg Neutrophils % 46.2 % (40.0-70.0) 06/01/22 04:44 Seg Neutrophils # 3.2 K/mm3 (1.8-7.7) 06/01/22 04:44 Sodium 139 mmol/L (137-145) 06/01/22 04:44 Potassium 3.4 mmol/L (3.6-5.0) L 06/01/22 04:44 Chloride 102.0 mmol/L (98-107) 06/01/22 04:44 Carbon Dioxide 26 mmol/L (22-30) 06/01/22 04:44 Anion Gap 14 mmol/L 06/01/22 04:44 BUN 13 mg/dL (7-17) 06/01/22 04:44 Creatinine 1.0 mg/dL (0.6-1.2) 06/01/22 04:44 Estimated GFR > 60 ml/min 06/01/22 04:44 BUN/Creatinine Ratio 13 % 06/01/22 04:44 Glucose 184 mg/dL (65-100) H 06/01/22 04:44 POC Glucose 140 mg/dL (70-105) H 06/05/22 21:04 Lactic Acid 1.60 mmol/L (0.7-2.0) 05/29/22 00:24 Calcium 9.6 mg/dL (8.4-10.2) 06/01/22 04:44 Total Bilirubin 0.50 mg/dL (0.1-1.2) 05/28/22 21:51 AST 25 units/L (5-40) 05/28/22 21:51 ALT 16 units/L (7-56) 05/28/22 21:51 Alkaline Phosphatase 259 units/L (35-129) H 05/28/22 21:51 Total Protein 8.2 g/dL (6.3-8.2) 05/28/22 21:51 Albumin 3.7 g/dL (3.9-5) L 05/28/22 21:51 Albumin/Globulin Ratio 0.8 % 05/28/22 21:51 Urine Color Yellow (Yellow) 05/28/22 21:09 Urine Turbidity Slightly-cloudy (Clear) 05/28/22 21:09 Urine pH 5.0 (5.0-7.0) 05/28/22 21:09 Ur Specific [place] 1.018 (1.003-1.030) 05/28/22 21:09 Urine Protein <15 mg/dl mg/dL (Negative) 05/28/22 21:09 Urine Glucose (UA) >=500 mg/dL (Negative) 05/28/22 21:09 Urine Ketones 20 mg/dL (Negative) 05/28/22 21:09 Urine Blood Neg (Negative) 05/28/22 21:09 Urine Nitrite Pos (Negative) 05/28/22 21:09 Urine Bilirubin Neg (Negative) 05/28/22 21:09 Urine Urobilinogen < 2.0 mg/dL (<2.0) 05/28/22 21:09 Ur Leukocyte Esterase Lg (Negative) 05/28/22 21:09 Urine WBC (Auto) 143.0 /HPF (0.0-6.0) H 05/28/22 21:09 Urine RBC (Auto) 1.0 /HPF (0.0-6.0) 05/28/22 21:09 U Epithel Cells (Auto) < 1.0 /HPF (0-13.0) 05/28/22 21:09 Urine WBC Clumps 2+ /HPF 05/28/22 21:09 Urine Mucus Few /HPF 05/28/22 21:09 Microbiology: Microbiology 06/03/22 Unknown Urine,Catheterized - Straight Catheter Urine Culture - Preliminary Pseudomonas Aeruginosa Enterococcus Faecalis Moya/IV: Voiding Method External Female Catheter Active Medications - Current Medications Current Medications: Generic Name Dose Route Start Last Admin Trade Name Freq PRN Reason Stop Dose Admin Acetaminophen 650 mg 05/29/22 00:34 06/05/22 08:13 Acetaminophen 325 Mg Tab PO 650 mg Q4H PRN Administration Pain MILD(1-3)/Fever >100.5/DUARTE Albuterol 2.5 mg 05/29/22 00:34 Albuterol 2.5 Mg/3 Ml Nebu IH Q3HRT PRN Shortness Of Breath Atenolol 50 mg 05/30/22 10:00 06/05/22 10:57 Atenolol 50 Mg Tab PO 50 mg QDAY MEHUL Administration Atorvastatin Calcium 40 mg 05/30/22 22:00 06/05/22 22:15 Atorvastatin 40 Mg Tab PO 40 mg QHS MEHUL Administration Calcitriol 0.25 mcg 05/30/22 10:00 06/05/22 10:56 Calcitriol 0.25 Mcg Cap PO 0.25 mcg DAILY MEHUL Administration Dextrose 50 ml 05/29/22 00:34 Dextrose 50% In Water (25gm) 50 Ml Syringe IV Q30MIN PRN Hypoglycemia Protocol Famotidine 20 mg 05/30/22 10:00 06/05/22 22:15 Famotidine 20 Mg Tab PO 20 mg BID MEHUL Administration Furosemide 40 mg 05/30/22 10:00 06/05/22 10:56 Furosemide 40 Mg Tab PO 40 mg DAILY MEHUL Administration Heparin Sodium (Porcine) 5,000 unit 05/29/22 10:00 06/05/22 22:15 Heparin 5,000 Unit/1 Ml Vial SUB-Q 5,000 unit Q12HR MEHUL Administration Hydralazine HCl 100 mg 05/30/22 10:00 06/05/22 22:15 Hydralazine 100 Mg Tab PO 100 mg BID MEHUL Administration Insulin Glargine 10 units 05/29/22 10:00 06/05/22 22:16 Insulin Glargine 100 Units/Ml SUB-Q 10 units BID MEHUL Administration Insulin Human Lispro 0 unit 06/04/22 11:30 06/05/22 22:16 Insulin Lispro 100 Unit/Ml SUB-Q Not Given [facility] Protocol Labetalol HCl 10 mg 05/29/22 13:03 05/29/22 13:19 Labetalol 20 Mg/4 Ml Inj IV 10 mg Q4H PRN Administration sbp> 160 Lisinopril 20 mg 05/29/22 13:00 06/05/22 10:56 Lisinopril 20 Mg Tab PO 20 mg QDAY MEHUL Administration Montelukast Sodium 10 mg 05/30/22 18:00 06/05/22 17:06 Montelukast 10 Mg Tab PO 10 mg QPM MEHUL Administration Morphine Sulfate 2 mg 05/29/22 00:34 06/06/22 03:03 Morphine 2 Mg/1 Ml Inj IV 2 mg Q4H PRN Administration Pain, Moderate (4-6) Morphine Sulfate 4 mg 05/29/22 00:34 06/05/22 22:18 Morphine 4 Mg/1 Ml Inj IV 4 mg Q4H PRN Administration Pain , Severe (7-10) Ondansetron HCl 4 mg 05/29/22 00:34 06/01/22 00:30 Ondansetron 4 Mg/2 Ml Inj IV 4 mg Q8H PRN Administration Nausea And Vomiting Sodium Chloride 10 ml 05/29/22 10:00 06/05/22 22:17 Sodium Chloride 0.9% 10 Ml Flush Syringe IV 10 ml BID MEHUL Administration Sodium Chloride 10 ml 05/29/22 00:34 06/04/22 00:04 Sodium Chloride 0.9% 10 Ml Flush Syringe IV 10 ml PRN PRN Administration LINE FLUSH Nutrition/Malnutrition Assess - Dietary Evaluation Nutrition/Malnutrition Findings: Nutrition Notes Start: 05/30/22 11:07 Freq: Status: Active Protocol: Document 06/03/22 10:53 HEMAL (Rec: 06/03/22 11:40 HEMAL [id number]) Nutrition Notes Initial or Follow up Assessment Current Diagnosis Decubitus(Pressure Ulcer), Diabetes,Hypertension Other Pertinent Diagnosis UTI, AMS. Current Diet Consistent Carbohydrates Diet (since 05/29), D Suppl (from D 06/03). Labs/Tests 06/01: K 3.4, Glu 184. Pertinent Medications 06/03: Lantus 10U, Humalog 3U, others nutritionally unremarkable. Height 5 ft 3 in Weight 113.398 kg [place] Body Weight (kg) 52.27 BMI 44.2 Intake Prior to Admission Good Weight change and time frame Pt denies having loss body weight [employer]. No body weight change reported in 4 days. Weight Status Morbidly Obese Subjective/Other Information RD consult for routine F/U on dietary advancement and nutrition education assessment . Pt's PO intake of meals has been Fair (50%) and fairly tolerated, according to ADL notes. Pt is on Room Air, O2 saturation @ 98%, according to Physical Assessment History notes. Pt has missing teeth, according to Physical Assessment History notes. Pt presents a sacral decubitus ulcer stages 1 and 2, according to Physical Assessment History notes. I will prescribe dietary supplements to support wound healing processes during LOS. Pt will be discharged to a Subacute Rehab Facility, according to Progress notes. Pt needs total assistance with ADL activities, not a candidate for Nutrition Education. Percent of energy/protein needs met: Prescribed Consistent Carbohydrates Diet provides for energy/protein needs (2, 061 Kcal/91 g) during LOS; additionally, Dietary Supplements will support wound healing processes with 190 Kcal and 5 g of protein. Burn Absent Trauma Absent GI Symptoms None Food Allergy No Skin Integrity/Comment Stages 1 & 2 Sacral decubitus wound Current % PO Fair (50-74%) Minimum of two criteria No Fluid Accumulation N/A Reduced Cotton Tier Strength N/A (non-severe) Protein-Calorie Malnutrition N\\A #1 Nutrition Diagnosis Increased nutrient needs ( specify in comment below) Comments: Protein to support wound healing processes. Etiology Pt being bedbound, negligence. As Evidenced by Signs and Symptoms Pt presents a sacral decubitus ulcers stages 1 and 2, according to Physical Assessment History notes. Is patient on ventilator? No Is Patient Ambulatory and/or Out of Bed No REE-([facility]-confined to bed) 191.660 Kcal/Kg value to use for calculation 13 Approximate Energy Requirements Using 1474 kcal/Kg Calculation Used for Recommendations Kcal/kg Additional Notes Protein: 1.25-1.5 g/Kg AdjBW; 104-124 g/day. Fluids: 1 ml/Kcal, or as per MD. Nutrition Intervention Change Diet Order: Continue Consistent Carbohydrates Diet. Add Supplement/Snack (indicate name/kcal Start 28.8 g pkt Timmy; BID. /protein ) Provides kCal: 190 Provides Protein (gm) 5 Goal #1 Support, through dietary supplementation, wound healing processes during LOS. Goal #2 Adjust the dietary intervention to better serve Pt's needs and clinical conditions during LOS. Follow-Up By: 06/10/22 Additional Comments Continue monitoring food tolerance, %PO intake of meals , dietary supplements, and BM.
[2022-06-06] MEDS: INSULIN GLARGINE 100 UNITS/ML SUB-Q SCH ×2 (10:53→22:10)
[2022-06-06] MEDS: FAMOTIDINE 20 MG TAB PO SCH ×2 (10:54→22:11)
[2022-06-06] MEDS: INSULIN LISPRO 100 UNIT/ML SUB-Q SCH ×4 (10:54→22:11)
[2022-06-06] MEDS: atenoloL 50 MG TAB PO SCH (10:54)
[2022-06-06] MEDS: FUROSEMIDE 40 MG TAB PO SCH (10:54)
[2022-06-06] MEDS: CALCITRIOL 0.25 MCG CAP PO SCH (10:55)
[2022-06-06] MEDS: HEPARIN 5,000 UNIT/1 ML VIAL SUB-Q SCH ×2 (10:55→22:11)
[2022-06-06] MEDS: hydrALAZINE 100 MG TAB PO SCH ×2 (14:11→22:10)
[2022-06-06] MEDS: LISINOPRIL 20 MG TAB PO SCH ×2 (14:12→18:34)
[2022-06-06] MEDS: MONTELUKAST 10 MG TAB PO SCH (18:33)
[2022-06-06] MEDS ORDERED: diphenhydrAMINE 25 MG CAP PO ONE (23:30)
[2022-06-07 07:14] LABS: Calcium 9.9 mg/dL (8.4-10.2)
[2022-06-07] MEDS: MORPHINE 2 MG/1 ML INJ IV PRN (08:32)
[2022-06-07] MEDS: FUROSEMIDE 40 MG TAB PO SCH (09:24)
[2022-06-07] MEDS: CALCITRIOL 0.25 MCG CAP PO SCH (09:24)
[2022-06-07] MEDS: LISINOPRIL 20 MG TAB PO SCH (09:24)
[2022-06-07] MEDS: FAMOTIDINE 20 MG TAB PO SCH ×2 (09:24→22:12)
[2022-06-07] MEDS: hydrALAZINE 100 MG TAB PO SCH ×2 (09:24→22:12)
[2022-06-07] MEDS: INSULIN LISPRO 100 UNIT/ML SUB-Q SCH ×4 (09:25→22:50)
[2022-06-07] MEDS: atenoloL 50 MG TAB PO SCH (09:25)
[2022-06-07] MEDS: INSULIN GLARGINE 100 UNITS/ML SUB-Q SCH ×2 (09:25→22:14)
[2022-06-07] MEDS: HEPARIN 5,000 UNIT/1 ML VIAL SUB-Q SCH ×2 (09:25→22:13)
[2022-06-07] MEDS: MONTELUKAST 10 MG TAB PO SCH (17:54)
--- NOTE | 2022-06-07 19:21 | Progress Note ---
Assessment and Plan Assessment and plan: 76-year-old morbidly obese female with diabetes and hypertension was brought to the emergency room because of hyperglycemia and altered mental status. Per charge nurse Francheska, EMS states that the patient's brother telephoned EMS because the patient had been weak, and not taking her insulin for the past 2 days. Patient was found to be incontinent of urine and covered in multiple urine soaked towels upon their arrival. Patient states "I just do not feel well." She denies any chest pain shortness of breath difficulty breathing or palpitations. No abdominal pain. No headache or head injury or loss of consciousness. Pain 0 out of 10. In the emergency room patient is found to have blood glucose of 425, bicarb of 26 and anion gap 19 subsequent blood glucose after 6 units of insulin is 279. Initial CT scan of the head shows no acute intracranial abnormality. Chest x- ray shows no focal infiltrate is seen. Patient also found to have a UTI . During her emergency because department course the patient was noted by staff members to have active live bedbugs. Decontamination to be performed by her emergency department nurse. Assessment and Plan: #UTI (urinary tract infection)- improving Treated with Rocephin 2 g IV daily. Urine Cx not completed, we will reorder #Acute toxic metabolic encephalopathy (resolved) -secondary to hyperglycemia and UTI. NPO. IV fluid half-normal saline at the rate of 125 cc/h. Humalog sliding scale every 6 hours fluid high-dose coverage. Lantus 10 units subcu every 12 hours. Diabetic education. Recheck BMP in the morning, 3 Rocephin 2 g IV daily # Hyperglycemic coma due to secondary diabetes, resolved Humalog sliding scale every 6 hours fluid high-dose coverage. Lantus 10 units subcu every 12 hours. Diabetic education. Recheck BMP in the morning # Hypertension Hydralazine 10 mg IV every 6 hours as needed. We continue the home medication #Morbid Obesity - BMI 44.3 - Counseled patient on the importance of weight loss, incorporating exercise, and dietary changes (lean meats, fresh fruits and vegetables, and water intake). Patient expresses understanding. Hospital Course: 05/30: Mentation improved. Aox4. Patient blood pressure low. Suspect iatrogenic cause. D/c clonidine. Resumed home regimen to restart this afternoon if BP tolerates. Downgrade to med/surg bed. Anticipate d/c in 24hrs. Dispo: home with brother. 05/31: Patient still with some weakness. We will check PT evaluation for disposition 06/01: Physical therapy recommending subacute rehab. We will discuss with case management placement 06/02: Patient completed Rocephin for UTI. Physical therapy recommends subacute rehab. Await placement 06/03: Awaiting rehab placement 06/04: Awaiting rehab placement 06/05: Patient completed Rocephin for UTI. Physical therapy recommends subacute rehab. Await placement 06/06; blood sugars reasonable level, PT recommended subacute rehab, DC planning per case management 06/07; patient is hemodynamically stable, awaiting placement [facility] pending authorization Case management assisting with discharge planning History Interval history: I have seen and examined the patient at the bedside Patient's chart and medications reviewed Patient feels slightly better Complains of generalized weakness Vital signs noted Hospitalist Physical - Constitutional Vitals: Temp Pulse Resp BP Pulse Ox 98.3 F 84 18 154/71 81 L 06/07/22 16:46 06/07/22 16:46 06/07/22 16:46 06/07/22 16:46 06/07/22 16:46 General appearance: Present: no acute distress, well-nourished, obese (Morbidly obese) - EENT Eyes: Present: PERRL, EOM intact - Neck Neck: Present: supple, normal ROM - Respiratory Respiratory effort: normal Respiratory: bilateral: diminished, rales, negative: rhonchi, wheezing - Cardiovascular Rhythm: regular Heart Sounds: Present: S1 & S2 - Extremities Extremities: no ischemia, No edema - Abdominal General gastrointestinal: soft, non-tender, non-distended, normal bowel sounds - Integumentary Integumentary: Present: clear, warm - Psychiatric Psychiatric: appropriate mood/affect, cooperative - Neurologic Neurologic: CNII-XII intact, moves all extremities Results - Labs CBC & Chem 7: 06/01/22 04:44 06/07/22 05:36 Labs: Laboratory Last Values WBC 6.8 K/mm3 (4.5-11.0) 06/01/22 04:44 RBC 4.06 M/mm3 (3.65-5.03) 06/01/22 04:44 Hgb 12.9 gm/dl (10.1-14.3) 06/01/22 04:44 Hct 39.8 % (30.3-42.9) 06/01/22 04:44 MCV 98 fl (79-97) H 06/01/22 04:44 MCH 32 pg (28-32) 06/01/22 04:44 MCHC 33 % (30-34) 06/01/22 04:44 RDW 14.0 % (13.2-15.2) 06/01/22 04:44 Plt Count 341 K/mm3 (140-440) 06/01/22 04:44 Lymph % (Auto) 39.8 % (13.4-35.0) H 06/01/22 04:44 [place] % (Auto) 11.0 % (0.0-7.3) H 06/01/22 04:44 Eos % (Auto) 2.0 % (0.0-4.3) 06/01/22 04:44 Baso % (Auto) 1.0 % (0.0-1.8) 06/01/22 04:44 Lymph # (Auto) 2.7 K/mm3 (1.2-5.4) 06/01/22 04:44 [place] # (Auto) 0.7 K/mm3 (0.0-0.8) 06/01/22 04:44 Eos # (Auto) 0.1 K/mm3 (0.0-0.4) 06/01/22 04:44 Baso # (Auto) 0.1 K/mm3 (0.0-0.1) 06/01/22 04:44 Seg Neutrophils % 46.2 % (40.0-70.0) 06/01/22 04:44 Seg Neutrophils # 3.2 K/mm3 (1.8-7.7) 06/01/22 04:44 Sodium 141 mmol/L (137-145) 06/07/22 05:36 Potassium 3.2 mmol/L (3.6-5.0) L 06/07/22 05:36 Chloride 99.4 mmol/L (98-107) 06/07/22 05:36 Carbon Dioxide 30 mmol/L (22-30) 06/07/22 05:36 Anion Gap 15 mmol/L 06/07/22 05:36 BUN 29 mg/dL (7-17) H 06/07/22 05:36 Creatinine 1.2 mg/dL (0.6-1.2) 06/07/22 05:36 Estimated GFR 53 ml/min 06/07/22 05:36 BUN/Creatinine Ratio 24 % 06/07/22 05:36 Glucose 108 mg/dL (65-100) H 06/07/22 05:36 POC Glucose 207 mg/dL (70-105) H 06/07/22 16:46 Lactic Acid 1.60 mmol/L (0.7-2.0) 05/29/22 00:24 Calcium 9.9 mg/dL (8.4-10.2) 06/07/22 05:36 Total Bilirubin 0.50 mg/dL (0.1-1.2) 05/28/22 21:51 AST 25 units/L (5-40) 05/28/22 21:51 ALT 16 units/L (7-56) 05/28/22 21:51 Alkaline Phosphatase 259 units/L (35-129) H 05/28/22 21:51 Total Protein 8.2 g/dL (6.3-8.2) 05/28/22 21:51 Albumin 3.7 g/dL (3.9-5) L 05/28/22 21:51 Albumin/Globulin Ratio 0.8 % 05/28/22 21:51 Urine Color Yellow (Yellow) 05/28/22 21:09 Urine Turbidity Slightly-cloudy (Clear) 05/28/22 21:09 Urine pH 5.0 (5.0-7.0) 05/28/22 21:09 Ur Specific [place] 1.018 (1.003-1.030) 05/28/22 21:09 Urine Protein <15 mg/dl mg/dL (Negative) 05/28/22 21:09 Urine Glucose (UA) >=500 mg/dL (Negative) 05/28/22 21:09 Urine Ketones 20 mg/dL (Negative) 05/28/22 21:09 Urine Blood Neg (Negative) 05/28/22 21:09 Urine Nitrite Pos (Negative) 05/28/22 21:09 Urine Bilirubin Neg (Negative) 05/28/22 21:09 Urine Urobilinogen < 2.0 mg/dL (<2.0) 05/28/22 21:09 Ur Leukocyte Esterase Lg (Negative) 05/28/22 21:09 Urine WBC (Auto) 143.0 /HPF (0.0-6.0) H 05/28/22 21:09 Urine RBC (Auto) 1.0 /HPF (0.0-6.0) 05/28/22 21:09 U Epithel Cells (Auto) < 1.0 /HPF (0-13.0) 05/28/22 21:09 Urine WBC Clumps 2+ /HPF 05/28/22 21:09 Urine Mucus Few /HPF 05/28/22 21:09 Microbiology: Microbiology 06/03/22 Unknown Urine,Catheterized - Straight Catheter Urine Culture - Final Pseudomonas Aeruginosa Enterococcus Faecalis Moya/IV: Voiding Method External Female Catheter Active Medications - Current Medications Current Medications: Generic Name Dose Route Start Last Admin Trade Name Freq PRN Reason Stop Dose Admin Acetaminophen 650 mg 05/29/22 00:34 06/05/22 08:13 Acetaminophen 325 Mg Tab PO 650 mg Q4H PRN Administration Pain MILD(1-3)/Fever >100.5/DUARTE Albuterol 2.5 mg 05/29/22 00:34 Albuterol 2.5 Mg/3 Ml Nebu IH Q3HRT PRN Shortness Of Breath Atenolol 50 mg 05/30/22 10:00 06/07/22 09:25 Atenolol 50 Mg Tab PO 50 mg QDAY MEHUL Administration Atorvastatin Calcium 40 mg 05/30/22 22:00 06/06/22 22:10 Atorvastatin 40 Mg Tab PO 40 mg QHS MEHUL Administration Calcitriol 0.25 mcg 05/30/22 10:00 06/07/22 09:24 Calcitriol 0.25 Mcg Cap PO 0.25 mcg DAILY MEHUL Administration Dextrose 50 ml 05/29/22 00:34 Dextrose 50% In Water (25gm) 50 Ml Syringe IV Q30MIN PRN Hypoglycemia Protocol Famotidine 20 mg 05/30/22 10:00 06/07/22 09:24 Famotidine 20 Mg Tab PO 20 mg BID MEHUL Administration Furosemide 40 mg 05/30/22 10:00 06/07/22 09:24 Furosemide 40 Mg Tab PO 40 mg DAILY MEHUL Administration Heparin Sodium (Porcine) 5,000 unit 05/29/22 10:00 06/07/22 09:25 Heparin 5,000 Unit/1 Ml Vial SUB-Q 5,000 unit Q12HR MEHUL Administration Hydralazine HCl 100 mg 05/30/22 10:00 06/07/22 09:24 Hydralazine 100 Mg Tab PO 100 mg BID MEHUL Administration Insulin Glargine 10 units 05/29/22 10:00 06/07/22 09:25 Insulin Glargine 100 Units/Ml SUB-Q 10 units BID MEHUL Administration Insulin Human Lispro 0 unit 06/04/22 11:30 06/07/22 18:08 Insulin Lispro 100 Unit/Ml SUB-Q Not Given ACHS [facility] Protocol Labetalol HCl 10 mg 05/29/22 13:03 05/29/22 13:19 Labetalol 20 Mg/4 Ml Inj IV 10 mg Q4H PRN Administration sbp> 160 Lisinopril 20 mg 05/29/22 13:00 06/07/22 09:24 Lisinopril 20 Mg Tab PO 20 mg QDAY MEHUL Administration Montelukast Sodium 10 mg 05/30/22 18:00 06/07/22 17:54 Montelukast 10 Mg Tab PO 10 mg QPM MEHUL Administration Morphine Sulfate 2 mg 05/29/22 00:34 06/07/22 08:32 Morphine 2 Mg/1 Ml Inj IV 2 mg Q4H PRN Administration Pain, Moderate (4-6) Morphine Sulfate 4 mg 05/29/22 00:34 06/05/22 22:18 Morphine 4 Mg/1 Ml Inj IV 4 mg Q4H PRN Administration Pain , Severe (7-10) Ondansetron HCl 4 mg 05/29/22 00:34 06/01/22 00:30 Ondansetron 4 Mg/2 Ml Inj IV 4 mg Q8H PRN Administration Nausea And Vomiting Sodium Chloride 10 ml 05/29/22 10:00 06/07/22 09:24 Sodium Chloride 0.9% 10 Ml Flush Syringe IV 10 ml BID MEHUL Administration Sodium Chloride 10 ml 05/29/22 00:34 06/04/22 00:04 Sodium Chloride 0.9% 10 Ml Flush Syringe IV 10 ml PRN PRN Administration LINE FLUSH Nutrition/Malnutrition Assess - Dietary Evaluation Nutrition/Malnutrition Findings: Nutrition Notes Start: 05/30/22 11:07 Freq: Status: Active Protocol: Document 06/03/22 10:53 HEMAL (Rec: 06/03/22 11:40 HEMAL [email or web address]) Nutrition Notes Initial or Follow up Assessment Current Diagnosis Decubitus(Pressure Ulcer), Diabetes,Hypertension Other Pertinent Diagnosis UTI, AMS. Current Diet Consistent Carbohydrates Diet (since D 05/29), D Suppl (from D 06/03). Labs/Tests 06/01: K 3.4, Glu 184. Pertinent Medications 06/03: Lantus 10U, Humalog 3U, others nutritionally unremarkable. Height 5 ft 3 in Weight 113.398 kg [place] Body Weight (kg) 52.27 BMI 44.2 Intake Prior to Admission Good Weight change and time frame Pt denies having loss body weight [facility]. No body weight change reported in 4 days. Weight Status Morbidly Obese Subjective/Other Information RD consult for routine F/U on dietary advancement and nutrition education assessment . Pt's PO intake of meals has been Fair (50%) and fairly tolerated, according to ADL notes. Pt is on Room Air, O2 saturation @ 98%, according to Physical Assessment History notes. Pt has missing teeth, according to Physical Assessment History notes. Pt presents a sacral decubitus ulcer stages 1 and 2, according to Physical Assessment History notes. I will prescribe dietary supplements to support wound healing processes during LOS. Pt will be discharged to a Subacute Rehab Facility, according to Progress notes. Pt needs total assistance with ADL activities, not a candidate for Nutrition Education. Percent of energy/protein needs met: Prescribed Consistent Carbohydrates Diet provides for energy/protein needs (2, 061 Kcal/91 g) during LOS; additionally, Dietary Supplements will support wound healing processes with 190 Kcal and 5 g of protein. 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 Etiology Pt being bedbound, negligence. As Evidenced by Signs and Symptoms Pt presents a sacral decubitus ulcers stages 1 and 2, according to Physical Assessment History notes. Is patient on ventilator? No Is Patient Ambulatory and/or Out of Bed No REE-([facility]-confined to bed) 1917.660 Kcal/Kg value to use for calculation 13 Approximate Energy Requirements Using 1474 kcal/Kg Calculation Used for Recommendations Kcal/kg Additional Notes Protein: 1.25-1.5 g/Kg AdjBW; 104-124 g/day. Fluids: 1 ml/Kcal, or as per MD. Nutrition Intervention Change Diet Order: Continue Consistent Carbohydrates Diet. Add Supplement/Snack (indicate name/kcal Start 28.8 g pkt Timmy; BID. /protein ) Provides kCal: 190 Provides Protein (gm) 5 Goal #1 Support, through dietary supplementation, wound healing processes during LOS. Goal #2 Adjust the dietary intervention to better serve Pt's needs and clinical conditions during LOS. Follow-Up By: 06/10/22 Additional Comments Continue monitoring food tolerance, %PO intake of meals , dietary supplements, and BM.
[2022-06-07] MEDS ORDERED: MAGNESIUM HYDROXIDE (MOM) ORAL LIQD UDC PO PRN (22:32)
[2022-06-07] MEDS: MORPHINE 4 MG/1 ML INJ IV PRN (23:27)
[2022-06-08 05:04] VITALS: BP 125/57
[2022-06-08] MEDS: INSULIN LISPRO 100 UNIT/ML SUB-Q SCH ×2 (08:34→12:46)
--- NOTE | 2022-06-08 08:56 | Progress Note ---
Assessment and Plan Assessment and plan: 76-year-old morbidly obese female with diabetes and hypertension was brought to the emergency room because of hyperglycemia and altered mental status. Per charge nurse Francheska, EMS states that the patient's brother telephoned EMS because the patient had been weak, and not taking her insulin for the past 2 days. Patient was found to be incontinent of urine and covered in multiple urine soaked towels upon their arrival. Patient states "I just do not feel well." She denies any chest pain shortness of breath difficulty breathing or palpitations. No abdominal pain. No headache or head injury or loss of consciousness. Pain 0 out of 10. In the emergency room patient is found to have blood glucose of 425, bicarb of 26 and anion gap 19 subsequent blood glucose after 6 units of insulin is 279. Initial CT scan of the head shows no acute intracranial abnormality. Chest x- ray shows no focal infiltrate is seen. Patient also found to have a UTI . During her emergency because department course the patient was noted by staff members to have active live bedbugs. Decontamination to be performed by her emergency department nurse. Assessment and Plan: #UTI (urinary tract infection)- improving Treated with Rocephin 2 g IV daily. Urine Cx not completed, we will reorder #Acute toxic metabolic encephalopathy (resolved) -secondary to hyperglycemia and UTI. NPO. IV fluid half-normal saline at the rate of 125 cc/h. Humalog sliding scale every 6 hours fluid high-dose coverage. Lantus 10 units subcu every 12 hours. Diabetic education. Recheck BMP in the morning, 3 Rocephin 2 g IV daily # Hyperglycemic coma due to secondary diabetes, resolved Humalog sliding scale every 6 hours fluid high-dose coverage. Lantus 10 units subcu every 12 hours. Diabetic education. Recheck BMP in the morning # Hypertension Hydralazine 10 mg IV every 6 hours as needed. We continue the home medication #Morbid Obesity - BMI 44.3 - Counseled patient on the importance of weight loss, incorporating exercise, and dietary changes (lean meats, fresh fruits and vegetables, and water intake). Patient expresses understanding. Hospital Course: 05/30: Mentation improved. Aox4. Patient blood pressure low. Suspect iatrogenic cause. D/c clonidine. Resumed home regimen to restart this afternoon if BP tolerates. Downgrade to med/surg bed. Anticipate d/c in 24hrs. Dispo: home with brother. 05/31: Patient still with some weakness. We will check PT evaluation for disposition 06/01: Physical therapy recommending subacute rehab. We will discuss with case management placement 06/02: Patient completed Rocephin for UTI. Physical therapy recommends subacute rehab. Await placement 06/03: Awaiting rehab placement 06/04: Awaiting rehab placement 06/05: Patient completed Rocephin for UTI. Physical therapy recommends subacute rehab. Await placement 06/06; blood sugars reasonable level, PT recommended subacute rehab, DC planning per case management 06/07; patient is hemodynamically stable, awaiting placement [facility] pending authorization Case management assisting with discharge planning Hospitalist Physical - Constitutional Vitals: Temp Pulse Resp BP Pulse Ox 97.4 F L 61 16 125/57 95 06/08/22 04:51 06/08/22 04:51 06/08/22 04:51 06/08/22 04:51 06/08/22 04:51 General appearance: Present: no acute distress, well-nourished, obese (Morbidly obese) Results - Labs CBC & Chem 7: 06/01/22 04:44 06/07/22 05:36 Labs: Laboratory Last Values WBC 6.8 K/mm3 (4.5-11.0) 06/01/22 04:44 RBC 4.06 M/mm3 (3.65-5.03) 06/01/22 04:44 Hgb 12.9 gm/dl (10.1-14.3) 06/01/22 04:44 Hct 39.8 % (30.3-42.9) 06/01/22 04:44 MCV 98 fl (79-97) H 06/01/22 04:44 MCH 32 pg (28-32) 06/01/22 04:44 MCHC 33 % (30-34) 06/01/22 04:44 RDW 14.0 % (13.2-15.2) 06/01/22 04:44 Plt Count 341 K/mm3 (140-440) 06/01/22 04:44 Lymph % (Auto) 39.8 % (13.4-35.0) H 06/01/22 04:44 [place] % (Auto) 11.0 % (0.0-7.3) H 06/01/22 04:44 Eos % (Auto) 2.0 % (0.0-4.3) 06/01/22 04:44 Baso % (Auto) 1.0 % (0.0-1.8) 06/01/22 04:44 Lymph # (Auto) 2.7 K/mm3 (1.2-5.4) 06/01/22 04:44 [place] # (Auto) 0.7 K/mm3 (0.0-0.8) 06/01/22 04:44 Eos # (Auto) 0.1 K/mm3 (0.0-0.4) 06/01/22 04:44 Baso # (Auto) 0.1 K/mm3 (0.0-0.1) 06/01/22 04:44 Seg Neutrophils % 46.2 % (40.0-70.0) 06/01/22 04:44 Seg Neutrophils # 3.2 K/mm3 (1.8-7.7) 06/01/22 04:44 Sodium 141 mmol/L (137-145) 06/07/22 05:36 Potassium 3.2 mmol/L (3.6-5.0) L 06/07/22 05:36 Chloride 99.4 mmol/L (98-107) 06/07/22 05:36 Carbon Dioxide 30 mmol/L (22-30) 06/07/22 05:36 Anion Gap 15 mmol/L 06/07/22 05:36 BUN 29 mg/dL (7-17) H 06/07/22 05:36 Creatinine 1.2 mg/dL (0.6-1.2) 06/07/22 05:36 Estimated GFR 53 ml/min 06/07/22 05:36 BUN/Creatinine Ratio 24 % 06/07/22 05:36 Glucose 108 mg/dL (65-100) H 06/07/22 05:36 POC Glucose 122 mg/dL (70-105) H 06/08/22 07:24 Lactic Acid 1.60 mmol/L (0.7-2.0) 05/29/22 00:24 Calcium 9.9 mg/dL (8.4-10.2) 06/07/22 05:36 Total Bilirubin 0.50 mg/dL (0.1-1.2) 05/28/22 21:51 AST 25 units/L (5-40) 05/28/22 21:51 ALT 16 units/L (7-56) 05/28/22 21:51 Alkaline Phosphatase 259 units/L (35-129) H 05/28/22 21:51 Total Protein 8.2 g/dL (6.3-8.2) 05/28/22 21:51 Albumin 3.7 g/dL (3.9-5) L 05/28/22 21:51 Albumin/Globulin Ratio 0.8 % 05/28/22 21:51 Urine Color Yellow (Yellow) 05/28/22 21:09 Urine Turbidity Slightly-cloudy (Clear) 05/28/22 21:09 Urine pH 5.0 (5.0-7.0) 05/28/22 21:09 Ur Specific [place] 1.018 (1.003-1.030) 05/28/22 21:09 Urine Protein <15 mg/dl mg/dL (Negative) 05/28/22 21:09 Urine Glucose (UA) >=500 mg/dL (Negative) 05/28/22 21:09 Urine Ketones 20 mg/dL (Negative) 05/28/22 21:09 Urine Blood Neg (Negative) 05/28/22 21:09 Urine Nitrite Pos (Negative) 05/28/22 21:09 Urine Bilirubin Neg (Negative) 05/28/22 21:09 Urine Urobilinogen < 2.0 mg/dL (<2.0) 05/28/22 21:09 Ur Leukocyte Esterase Lg (Negative) 05/28/22 21:09 Urine WBC (Auto) 143.0 /HPF (0.0-6.0) H 05/28/22 21:09 Urine RBC (Auto) 1.0 /HPF (0.0-6.0) 05/28/22 21:09 U Epithel Cells (Auto) < 1.0 /HPF (0-13.0) 05/28/22 21:09 Urine WBC Clumps 2+ /HPF 05/28/22 21:09 Urine Mucus Few /HPF 05/28/22 21:09 Moya/IV: Voiding Method External Female Catheter Active Medications - Current Medications Current Medications: Generic Name Dose Route Start Last Admin Trade Name Freq PRN Reason Stop Dose Admin Acetaminophen 650 mg 05/29/22 00:34 06/05/22 08:13 Acetaminophen 325 Mg Tab PO 650 mg Q4H PRN Administration Pain MILD(1-3)/Fever >100.5/DUARTE Albuterol 2.5 mg 05/29/22 00:34 Albuterol 2.5 Mg/3 Ml Nebu IH Q3HRT PRN Shortness Of Breath Amlodipine Besylate 10 mg 06/08/22 10:00 Amlodipine 10 Mg Tab PO DAILY MEHUL Atenolol 50 mg 05/30/22 10:00 06/07/22 09:25 Atenolol 50 Mg Tab PO 50 mg QDAY MEHUL Administration Atorvastatin Calcium 40 mg 05/30/22 22:00 06/07/22 22:12 Atorvastatin 40 Mg Tab PO 40 mg QHS MEHUL Administration Calcitriol 0.25 mcg 05/30/22 10:00 06/07/22 09:24 Calcitriol 0.25 Mcg Cap PO 0.25 mcg DAILY MEHUL Administration Dextrose 50 ml 05/29/22 00:34 Dextrose 50% In Water (25gm) 50 Ml Syringe IV Q30MIN PRN Hypoglycemia Protocol Famotidine 20 mg 05/30/22 10:00 06/07/22 22:12 Famotidine 20 Mg Tab PO 20 mg BID MEHUL Administration Furosemide 40 mg 05/30/22 10:00 06/07/22 09:24 Furosemide 40 Mg Tab PO 40 mg DAILY MEHUL Administration Heparin Sodium (Porcine) 5,000 unit 05/29/22 10:00 06/07/22 22:13 Heparin 5,000 Unit/1 Ml Vial SUB-Q 5,000 unit Q12HR MEHUL Administration Hydralazine HCl 100 mg 05/30/22 10:00 06/07/22 22:12 Hydralazine 100 Mg Tab PO 100 mg BID EMHUL Administration Insulin Glargine 10 units 05/29/22 10:00 06/07/22 22:14 Insulin Glargine 100 Units/Ml SUB-Q 10 units BID MEHUL Administration Insulin Human Lispro 0 unit 06/04/22 11:30 06/08/22 08:34 Insulin Lispro 100 Unit/Ml SUB-Q Not Given ACHS MEHUL Protocol Labetalol HCl 10 mg 05/29/22 13:03 05/29/22 13:19 Labetalol 20 Mg/4 Ml Inj IV 10 mg Q4H PRN Administration sbp> 160 Lisinopril 20 mg 05/29/22 13:00 06/07/22 09:24 Lisinopril 20 Mg Tab PO 20 mg QDAY MEHUL Administration Magnesium Hydroxide 30 ml 06/07/22 22:32 06/07/22 23:15 Magnesium Hydroxide (Mom) Oral Liqd Udc PO 30 ml QDAY PRN Administration Constipation Montelukast Sodium 10 mg 05/30/22 18:00 06/07/22 17:54 Montelukast 10 Mg Tab PO 10 mg QPM MEHUL Administration Morphine Sulfate 2 mg 05/29/22 00:34 06/07/22 08:32 Morphine 2 Mg/1 Ml Inj IV 2 mg Q4H PRN Administration Pain, Moderate (4-6) Morphine Sulfate 4 mg 05/29/22 00:34 06/07/22 23:27 Morphine 4 Mg/1 Ml Inj IV 4 mg Q4H PRN Administration Pain , Severe (7-10) Mupirocin 1 applic 06/08/22 10:00 Mupirocin 2% Oint 22 Gm TP QDAY MEHUL Nortriptyline HCl 25 mg 06/08/22 22:00 Nortriptyline 25 Mg Cap PO HS MEHUL Ondansetron HCl 4 mg 05/29/22 00:34 06/01/22 00:30 Ondansetron 4 Mg/2 Ml Inj IV 4 mg Q8H PRN Administration Nausea And Vomiting Sodium Chloride 10 ml 05/29/22 10:00 06/07/22 22:14 Sodium Chloride 0.9% 10 Ml Flush Syringe IV 10 ml BID MEHUL Administration Sodium Chloride 10 ml 05/29/22 00:34 06/04/22 00:04 Sodium Chloride 0.9% 10 Ml Flush Syringe IV 10 ml PRN PRN Administration LINE FLUSH Nutrition/Malnutrition Assess - Dietary Evaluation Nutrition/Malnutrition Findings: Nutrition Notes Start: 05/30/22 11:07 Freq: Status: Active Protocol: Document 06/03/22 10:53 HEMAL (Rec: 06/03/22 11:40 HEMAL [id number]) Nutrition Notes Initial or Follow up Assessment Current Diagnosis Decubitus(Pressure Ulcer), Diabetes,Hypertension Other Pertinent Diagnosis UTI, AMS. Current Diet Consistent Carbohydrates Diet (since 05/29), D Suppl (from D 06/03). Labs/Tests 06/01: K 3.4, Glu 184. Pertinent Medications 06/03: Lantus 10U, Humalog 3U, others nutritionally unremarkable. 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 No body weight change reported in 4 days. Weight Status Morbidly Obese Subjective/Other Information RD consult for routine F/U on dietary advancement and nutrition education assessment . Pt's PO intake of meals has been Fair (50%) and fairly tolerated, according to ADL notes. Pt is on Room Air, O2 saturation @ 98%, according to Physical Assessment History notes. Pt has missing teeth, according to Physical Assessment History notes. Pt presents a sacral decubitus ulcer stages 1 and 2, according to Physical Assessment History notes. I will prescribe dietary supplements to support wound healing processes during LOS. Pt will be discharged to a Subacute Rehab Facility, according to Progress notes. Pt needs total assistance with ADL activities, not a candidate for Nutrition Education. Percent of energy/protein needs met: Prescribed Consistent Carbohydrates Diet provides for energy/protein needs (2, 061 Kcal/91 g) during LOS; additionally, Dietary Supplements will support wound healing processes with 190 Kcal and 5 g of protein. 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 Etiology Pt being bedbound, negligence. As Evidenced by Signs and Symptoms Pt presents a sacral decubitus ulcers stages 1 and 2, according to Physical Assessment History notes. Is patient on ventilator? No Is Patient Ambulatory and/or Out of Bed No REE-([facility]-confined to bed) 1916.660 Kcal/Kg value to use for calculation 13 Approximate Energy Requirements Using 1474 kcal/Kg Calculation Used for Recommendations Kcal/kg Additional Notes Protein: 1.25-1.5 g/Kg AdjBW; 104-124 g/day. Fluids: 1 ml/Kcal, or as per MD. Nutrition Intervention Change Diet Order: Continue Consistent Carbohydrates Diet. Add Supplement/Snack (indicate name/kcal Start 28.8 g pkt Timmy; BID. /protein ) Provides kCal: 190 Provides Protein (gm) 5 Goal #1 Support, through dietary supplementation, wound healing processes during LOS. Goal #2 Adjust the dietary intervention to better serve Pt's needs and clinical conditions during LOS. Follow-Up By: 06/10/22 Additional Comments Continue monitoring food tolerance, %PO intake of meals , dietary supplements, and BM.
[2022-06-08] MEDS: atenoloL 50 MG TAB PO SCH (09:01)
[2022-06-08] MEDS: FAMOTIDINE 20 MG TAB PO SCH (09:01)
[2022-06-08] MEDS: CALCITRIOL 0.25 MCG CAP PO SCH (09:01)
[2022-06-08] MEDS: FUROSEMIDE 40 MG TAB PO SCH (09:01)
[2022-06-08] MEDS: hydrALAZINE 100 MG TAB PO SCH (09:01)
[2022-06-08] MEDS: HEPARIN 5,000 UNIT/1 ML VIAL SUB-Q SCH (09:02)
[2022-06-08] MEDS: INSULIN GLARGINE 100 UNITS/ML SUB-Q SCH (09:03)
[2022-06-08] MEDS: LISINOPRIL 20 MG TAB PO SCH (09:05)
[2022-06-08] MEDS ORDERED: amLODIPine 10 MG TAB PO SCH (10:00)
[2022-06-08] MEDS ORDERED: MUPIROCIN 2% OINT 22 GM TP SCH (10:00)
[2022-06-08] MEDS: MORPHINE 2 MG/1 ML INJ IV PRN ×2 (11:16→15:11)
--- NOTE | 2022-06-08 14:12 | Discharge Summary ---
Providers - Providers Date of Admission: 05/29/22 00:34 Date of discharge: 06/08/22 Attending physician: SUE CHEN 05/29/22 00:34 Consult to Dietitian/Nutrition [CONS] Routine Physician Instructions: Reason For Exam: Reason for Consult: Diet education 05/30/22 11:09 Physical Therapy Evaluation and Treat [CONS] Routine Comment: Reason For Exam: Poor mobility and inability to care for herself 06/03/22 23:51 Consult to Wound/ET Nurse [CONS] Routine Reason For Exam: wound eval Primary care physician: PEMA LONG Hospitalization Reason for admission: Acute toxic metabolic encephalopathy/hyperglycemia Condition: Stable Pertinent studies: CT head without contrast Chest x-ray for text Hospital course: 76-year-old morbidly obese female with diabetes and hypertension was brought to the emergency room because of hyperglycemia and altered mental status. Per charge nurse Francheska, EMS states that the patient's brother telephoned EMS because the patient had been weak, and not taking her insulin for the past 2 days. Patient was found to be incontinent of urine and covered in multiple urine soaked towels upon their arrival. Patient states "I just do not feel well." She denies any chest pain shortness of breath difficulty breathing or palpitations. No abdominal pain. No headache or head injury or loss of consciousness. Pain 0 out of 10. In the emergency room patient is found to have blood glucose of 425, bicarb of 26 and anion gap 19 subsequent blood glucose after 6 units of insulin is 279. Initial CT scan of the head shows no acute intracranial abnormality. Chest x- ray shows no focal infiltrate is seen. Patient also found to have a UTI . During her emergency because department course the patient was noted by staff members to have active live bedbugs. Decontamination to be performed by her emergency department nurse. Assessment and Plan: #Acute toxic metabolic encephalopathy (resolved) -secondary to hyperglycemia and UTI. NPO. IV fluid half-normal saline at the rate of 125 cc/h. Humalog sliding scale every 6 hours fluid high-dose coverage. Lantus 10 units subcu every 12 hours. Diabetic education. Recheck BMP in the morning, 3 Rocephin 2 g IV daily # Hyperglycemic coma due to secondary diabetes, resolved Humalog sliding scale every 6 hours fluid high-dose coverage. Lantus 10 units subcu every 12 hours. Diabetic education. Recheck BMP in the morning #UTI (urinary tract infection)- improving Treated with Rocephin 2 g IV daily. Urine Cx not completed, we will reorder # Hypertension Hydralazine 10 mg IV every 6 hours as needed. We continue the home medication #Hypokalemia/resolved #Morbid Obesity - BMI 44.3 - Counseled patient on the importance of weight loss, incorporating exercise, and dietary changes (lean meats, fresh fruits and vegetables, and water intake). Patient expresses understanding. Disposition: 03 [facility] Final Discharge Diagnosis (Prints w/discharge instructions): Acute toxic metabolic encephalopathy/resolved. Hyperglycemia, due to uncontrolled diabetes/improved. Urinary tract infection/completed treatment. Hypertension. Hypokalemia resolved. Morbid obesity BMI 44.3 Time spent for discharge: 40 min Core Measure Documentation - Palliative Care Palliative Care/ Comfort Measures: Not Applicable - Core Measures Any of the following diagnoses?: none Exam - Constitutional Vitals: Temp Pulse Resp BP Pulse Ox 97.4 F L 61 16 125/57 97 06/08/22 04:51 06/08/22 04:51 06/08/22 04:51 06/08/22 04:51 06/08/22 10:00 General appearance: Present: no acute distress, well-nourished - EENT Eyes: Present: PERRL, EOM intact - Neck Neck: Present: supple, normal ROM - Respiratory Respiratory effort: normal Respiratory: bilateral: diminished, negative: rales, rhonchi, wheezing - Cardiovascular Rhythm: regular Heart Sounds: Present: S1 & S2 - Extremities Extremities: no ischemia, No edema - Abdominal General gastrointestinal: Present: soft, non-tender, non-distended, normal bowel sounds - Integumentary Integumentary: Present: clear, warm - Musculoskeletal Musculoskeletal: strength equal bilaterally - Psychiatric Psychiatric: appropriate mood/affect - Neurologic Neurologic: moves all extremities Plan Activity: advance as tolerated, fall precautions Diet: diabetic, other (Cardiac diet as tolerated) Special Instructions: physical therapy Additional Instructions: Fall precautions. For worsening symptoms contact MD or go to the nearest emergency room as needed. Strongly advised to comply with medications, diet, follow-up visits per schedule. Advised dietary modification, exercise as tolerated and weight reduction when you are medically stable. May benefit from bariatric surgical evaluation as outpatient for weight reduction program when you are medically stable Follow up with: PEMA LONG MD [Primary Care Provider] - 7 Days
[2022-06-08] MEDS ORDERED: NORTRIPTYLINE 25 MG CAP PO SCH (22:00)
== END 2022-06-08 17:44 | DRG 637 ==
LOC: ED 19:37 → IMCU 05-29 00:34 → 3A 05-30 16:40
PROVIDERS: ADMIT Hospitalist; ATTEND Internal Medicine
DX: E11.11 Type 2 diabetes mellitus with ketoacidosis with coma (principal); G92.8 Other toxic encephalopathy; N39.0 Urinary tract infection, site not specified; Z68.41 Body mass index [BMI] 40.0-44.9, adult; Z20.822 Contact with and (suspected) exposure to COVID-19; E66.01 Morbid (severe) obesity due to excess calories; I10 Essential (primary) hypertension; Z71.3 Dietary counseling and surveillance; E87.6 Hypokalemia; Z83.3 Family history of diabetes mellitus
CPT/HCPCS: 36415; 70450; 71045; 80048; 80053; 81001; 82140; 82962; 83735; 84132; 85025; 85027; 87076; 87086; 87186; 93005; 94640; G0378; J3490; Q9967; J0360; J0696; J1200; J1644; J1815; J2270; J2405; J7030; U0003